=== PATIENT | female | born 1985 | race Caucasian/White ===

== ENCOUNTER 2016-09-18 05:10 | Emergency (ER) | payer OTHER ==
[2016-09-18 06:58] LABS: BASO % 0.2 % (0.0-1.0); EOS # 0.1 K/mm3 (0.0-0.50); EOS % 1.1 % (0.0-3.0); LARGE UNSTAINED CELL # 0.1 K/mm3 (0.0-0.4); LYMPH % 16.2 % (24.0-44.0); MEAN CORPUSCULAR HEMOGLOBIN 29.5 pg (27.0-33.0); MEAN CORPUSCULAR HGB CONC 34.2 g/dl (32.0-36.5); MEAN CORPUSCULAR VOLUME 86.3 fl (80.0-96.0); MONO # 0.3 K/mm3 (0.0-0.8); MONO % 4.8 % (0.0-5.0); NEUTROPHILS # 4.8 K/mm3 (1.8-7.7); NEUTROPHILS % 76.7 % (36.0-66.0); PLATELET COUNT, AUTOMATED 208 k/mm3 (150-450); RED CELL DISTRIBUTION WIDTH 12.4 % (11.5-14.5); WHITE BLOOD COUNT 6.2 K/mm3 (4.0-10.0)
[2016-09-18 07:14] LABS: CONTROL LINE HCG INT CTR LINE PRESENT
[2016-09-18] MEDS ORDERED: ONDANSETRON 4MG/2ML VIAL (J2405) As Ordered ONE (07:15)
[2016-09-18] MEDS ORDERED: MORPHINE 4 MG/ML 1ML SYRINGE As Ordered ONE (07:15)
[2016-09-18] MEDS ORDERED: KETOROLAC 30 MG/ML VIAL (J1885) As Ordered ONE (07:15)
[2016-09-18 07:17] LABS: ALBUMIN 3.9 GM/DL (3.2-5.2); ALBUMIN/GLOBULIN RATIO 0.98 (1.00-1.93); ALKALINE PHOSPHATASE 70 U/L (45-117); ALT/SGPT 24 U/L (12-78); AMYLASE 51 U/L (25-115); ANION GAP 8 MEQ/L (8-16); AST/SGOT 17 U/L (15-37); BILIRUBIN,DIRECT < 0.1 MG/DL (0.0-0.2); BILIRUBIN,TOTAL 0.5 MG/DL (0.2-1.0); BLOOD UREA NITROGEN 15 MG/DL (7-18); CARBON DIOXIDE LEVEL 27 MEQ/L (21-32); CHLORIDE LEVEL 104 MEQ/L (98-107); CREATININE FOR GFR 0.87 MG/DL (0.55-1.02); GLOMERULAR FILTRATION RATE > 60.0 (>60); GLUCOSE, FASTING 92 MG/DL (70-105); POTASSIUM SERUM 3.8 MEQ/L (3.5-5.1); SODIUM LEVEL 139 MEQ/L (136-145); TOTAL PROTEIN 7.9 GM/DL (6.4-8.2)
--- NOTE | 2016-09-18 07:54 | REP ---
Clinical: Right upper quadrant pain. Technique: Real time solis scale ultrasound examination using curved array transducer. Findings: Liver demonstrates mild fatty infiltration without focal hepatic lesion identified. The pancreas is incompletely evaluated due to interposed bowel gas, but visualized portions appear normal. The gallbladder demonstrates mobile gallstone without wall thickening or pericholecystic fluid. No biliary ductal dilatation is appreciated and the common bile duct measures 4 mm diameter. The right kidney is normal in reniform shape and appearance without hydronephrosis measuring 11.2 x 5.7 x 4.9 cm. No ascites in the visualized right upper quadrant. Impression: Cholelithiasis without sonographic evidence for acute cholecystitis. Fatty infiltration to the liver. Signed by Shyam Jensen MD 09/18/2016 07:45 A
[2016-09-18] MEDS ORDERED: GI COCKTAIL 50ML BTL(HYOSCYAMINE/MAALOX/LIDOCAINE VISCOUS)(1:3:1) As Ordered ONE (08:16)
[2016-09-18] MEDS ORDERED: ISOVUE-370 76% 100ML VIAL (Q9967) As Ordered ONE (08:21)
--- NOTE | 2016-09-18 09:15 | REP ---
A CT abdomen and pelvis with IV contrast but without bowel contrast: There are no comparisons. The visualized lung hugo are clear. The hepatic parenchyma is homogeneous. The pancreas is unremarkable. There are multiple gallbladder calculi in the gallbladder fundus. There is no gallbladder wall thickening or pericholecystic fluid to suggest acute cholecystitis. There is no biliary duct dilatation. The spleen has a mottled appearance. This could be artifact from a scanning during the arterial phase of enhancement or could represent splenic masses. The spleen is mildly enlarged measuring 13 0.4 cm craniocaudad. The adrenals, kidneys and abdominal aorta are unremarkable. There is no adenopathy or ascites. The bowel mesentery are unremarkable. Pelvis: The bladder, uterus and adnexa are unremarkable. There is an IUD in the uterus. There is no adenopathy or ascites. The appendix is not identified, however there is no pericecal inflammation. There is no pelvic adenopathy or ascites. Impression: Cholelithiasis without CT evidence of acute cholecystitis or biliary duct dilatation. Mottled appearance of the spleen, likely secondary to timing of scanning with the contrast bolus. Mild splenomegaly. No ascites or adenopathy. No bowel distension. IUD. Signed by Serg Neri MD 09/18/2016 09:06 A
[2016-09-18 09:29] LABS: CONTROL LINE MONO INT CTR LINE PRESENT
--- NOTE | 2016-09-18 09:59 | EDDOCDS ---
Physician Documentation [facility] Name: Serina Herndon Age: 31 yrs Sex: Female : 1985 Arrival Date: 09/18/2016 Time: 05:10 Bed 10 Private MD: Disposition: 09/18/16 09:41 Discharged to Home/Self Care. Impression: Cholelithiasis, Generalized abdominal pain, Gastritis, unspecified. - Condition is Stable. - Discharge Instructions: Abdominal Pain, Adult, Gastritis, Adult, Abdominal Pain, Women, Cholelithiasis. - Prescriptions for Nexium 20 mg Oral Capsule - take 1 capsule by ORAL route once daily; 20 capsule. - Medication Reconciliation, Local Pharmacy Hours form. - Follow up: Serg Lovell DO; When: 10 - 14 days. [facility]; When: 10 - 14 days. - Problem is new. - Symptoms have improved. - Notes: follow up with dr. lovell for abdominal pain/gallstones. [facility] to [facility] primary care. Call in 2 days for Cassidy Rosario result. [phone] - ask to speak to charge nurse. return if worsening symptoms Historical: - Allergies: No known drug Allergies; - Home Meds: 1. omeprazole 40 mg Oral cpDR 1 cap once daily - PMHx: GERD; - PSHx: none; - Social history: Smoking status: Patient states former smoker of tobacco. No barriers to communication noted, The patient speaks fluent Portuguese, Speaks appropriately for age. - Family history: Not pertinent. - : The pt / caregiver states he / she is not on anticoagulants. Home medication list is obtained from the patient. - Exposure Risk Screening:: None identified. 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 2 in. (157.48 cm); Pain 6/10; 07:56 BP 95 / 53; Pulse 61; Resp 16; Pain 5/10; jmk 08:24 BP 113 / 55; Pulse 66; Resp 16; jmk 09:41 BP 107 / 64; Pulse 60; Resp 18; Pulse Ox 98% on R/A; Pain 0/10; kc3 09:57 BP 108 / 63; Pulse 60; Resp 18; Temp 97.5(O); Pulse Ox 99% on R/A; Pain 0/10; kc3 05:43 Body Mass Index 44.99 (111.58 kg, 157.48 cm) ko2 MDM: 05:55 [facility] [place] [place] Payment Agreement was scanned into [employer] and attached to record. slh 06:42 IV Saline Lock ordered. ml 06:42 NS 0.9% 1000 ml IV at bolus once ordered. ml 06:42 Ondansetron 4 mg IVP once ordered. ml 06:42 Misc. Nursing Order ordered. ml 06:44 CBC with Diff Ordered. EDMS 06:44 MED Profile Ordered. EDMS 06:44 Liver Profile Ordered. EDMS 06:44 Lipase Ordered. EDMS 06:44 Amylase Ordered. EDMS 06:44 HCG,Serum Qualitative Ordered. EDMS 06:48 Financial registration complete. pm4 06:58 UA Ordered. EDMS 06:58 Urine Culture Ordered. EDMS 06:59 Gallbladder US Ordered. EDMS 07:14 ketorolac 30 mg IVP once ordered. ml 07:14 morphine 4 mg IVP once ordered. ml 07:22 Ondansetron 4 mg IVP once ordered. jmk 07:34 CBC with Diff Reviewed. ml 07:34 Liver Profile Reviewed. ml 07:34 UA Reviewed. ml 07:34 MED Profile Reviewed. ml 07:34 Lipase Reviewed. ml 07:34 Amylase Reviewed. ml 07:34 HCG,Serum Qualitative Reviewed. ml 08:08 Gallbladder US Reviewed. ml 08:11 Vital Signs ordered. ml 08:11 NS 0.9% 1000 ml IV at bolus once ordered. ml 08:11 Misc. Nursing Order ordered. ml 08:11 morphine 2 mg IVP once ordered. ml 08:12 GI Cocktail - (Alum-Mag Hydroxide-Simeth 30 ml, Lidocaine 10 ml, Hyoscyamine 10 ml) PO ml once; Pre-mixed 50mL unit dose ordered. 08:12 CT ABD & PELVIS: IV Contrast Only Ordered. EDMS 09:19 Monoscreen Ordered. EDMS 09:19 Misc Sterile Supply Technician Order ordered. ml 09:22 Misc Sterile Supply Technician Order complete. deg 09:23 CASSIDY ROSARIO VIRUS AB, COMPREH Ordered. EDMS Administered Medications: 06:48 Not Given (pt denies nausea): Ondansetron 4 mg IVP once [facility] 07:07 Drug: NS 0.9% 1000 ml Route: IV; Rate: bolus; Site: left antecubital; k 07:21 Drug: ketorolac 30 mg [ketorolac 30 mg/mL (1 mL) injection solution (1 mL)] Route: IVP; [facility] Site: left antecubital; 07:58 Follow up: Response: No significant change. jmk 07:21 Drug: morphine 4 mg Route: IVP; Site: left antecubital; jmk 07:58 Follow up: Response: No significant change. jmk 07:22 Drug: Ondansetron 4 mg Route: IVP; Site: left antecubital; jmk 07:58 Follow up: Response: No significant change. k 08:23 Drug: NS 0.9% 1000 ml Route: IV; Rate: bolus; Site: left antecubital; k 08:23 Drug: GI Cocktail - (Alum-Mag Hydroxide-Simeth Suspension 225 mg-200 mg-25 mg/5 mL 30 jmk ml, Lidocaine Liquid 2 % 10 ml, Hyoscyamine Liquid 10 ml) Route: PO; 09:07 Follow up: Response: Pain is decreased k 09:58 Not Given (Patient Refused): morphine 2 mg IVP once kc3 Signatures: Dispatcher [employer] Renate Noyola MD MD ml Murray, Denise, Salesperson [employer] deg Terrance Garza RN RN jmk Kelsi MaldonadoRN RN Joanne Pierce [facility] Emily Patterson RN RN kc3 Edwin Hager, Reg Reg pm4 Haydee Helm RN [facility] The chart was reviewed and I authenticate all verbal orders and agree with the evaluation and treatment provided.Attachments: 05:55 [facility] Payment Agreement [facility] MTDD
--- NOTE | 2016-09-18 09:59 | EDDOCDS ---
Nurse's Notes [facility] Name: Serina Herndon Age: 31 yrs Sex: Female : 1985 Arrival Date: 09/18/2016 Time: 05:10 Bed 10 Private MD: Diagnosis: Cholelithiasis;Generalized abdominal pain;Gastritis, unspecified Presentation: 09/18 05:39 Presenting complaint: Patient states: was supposed to have gallbladder out a while ago ko2 but didn't and thinks that was what is causing her pain. Was running a fever but took Tylenol. Pt did throw up hours after eating and it was undigested. Risk factors: the patient reports no vaginal bleeding. Suicide/Homicide risk assessment- the patient denies having any suicidal and/or homicidal ideations and does not present with any other emotional, behavioral or mental health complaints. Status: Patient is not a office service coordinator or dependent. Transition of care: patient was not received from another setting of care. 05:39 Method Of Arrival: Walkin/Carried/Asstd ko2 05:46 Adult Sepsis Screening: The patient does not have new or worsening altered mentation. ko2 Patient's respiratory rate is less than 22. Systolic blood pressure is greater than 100. Patient has a qSOFA score of 0- Negative Sepsis Screen. 05:46 Acuity: TAD Level 3 ko2 Triage Assessment: 05:42 General: Appears in no apparent distress, Behavior is appropriate for age, cooperative. ko2 Pain: Location: epigastric area, right lower quadrant and left lower quadrant. HIV screening NA for this visit Offered previously. Neurological: Level of Consciousness is awake, alert. Respiratory: Airway is patent Respiratory effort is even, unlabored. GI: Reports lower abdominal pain, nausea, vomiting. Derm: Skin is normal. 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 omeprazole 40 mg Oral cpDR 1 cap once daily - PMHx: GERD; - PSHx: none; - Social history: Smoking status: Patient states former smoker of tobacco. No barriers to communication noted, The patient speaks fluent Dutch, Speaks appropriately for age. - Family history: Not pertinent. - : The pt / caregiver states he / she is not on anticoagulants. Home medication list is obtained from the patient. - Exposure Risk Screening:: None identified. Screenin:46 Screening information is obtained from the patient. Fall risk: No risks identified. ko2 Assistance ADL's: requires no assistance with activities of daily living. Abuse/DV Screen: The patient / caregiver reports he/she is: not in a situation that causes fear, pain or injury. Nutritional screening: No deficits noted. Advance Directives: Currently, there is no health care proxy. There is no active DNR order. There is no living will. There is no Power of Hash [place]. home support is adequate. Assessment: 06:48 General: Appears in no apparent distress, comfortable, Behavior is appropriate for age, mlc cooperative. Pain: Location: epigastric area, right lower quadrant and left lower quadrant Pain currently is 5 out of 10 on a pain scale. Neurological: Level of Consciousness is awake, alert, Oriented to person, place, time. Respiratory: Airway is patent Respiratory effort is even, unlabored, Respiratory pattern is regular. GI: Abdomen is obese, Bowel sounds present X 4 quads. Abd is soft and non tender X 4 quads. Denies nausea. Derm: Skin is pink, warm & dry. 07:22 General: Appears skin warm and dry color satisfactory. moist pink oral mucosa. jmk indicated mid upper abd discomfort. Obese abdomen that is non distended with bowel sounds present x 4 . reports pain radiates to RUQ and to back.. 07:33 General: Appears resp easy and regular with eyes closed. security maintaining contact. jmk awaiting dispo. 07:56 General: Appears states pain is essentially unchanged at 5/10. Reports that she is jmk feeling effect from meds, but pain unchanged. Continues to present in NAD. IV bolus continues.. 09:07 General: Appears states pain has decreased and declined morphine when offered.. jmk 09:40 General: Appears in no apparent distress, comfortable, Behavior is appropriate for age, kc3 cooperative. Pain: Denies pain. Neurological: Level of Consciousness is awake, alert, obeys commands, Oriented to person, place, time. Respiratory: Respiratory effort is even, unlabored. GI: Denies nausea. Derm: Skin is pink, warm & dry. 09:57 General: Appears in no apparent distress, comfortable, Behavior is appropriate for age, kc3 cooperative. Pain: Denies pain. Neurological: No deficits noted. Respiratory: Respiratory effort is even, unlabored. GI: Denies nausea. Vital Signs: 05:43 BP 136 / 88; Pulse 65; Resp 16; Temp 97.4; Pulse Ox 98% ; Weight 111.58 kg; Height 5 ko2 ft. 2 in. (157.48 cm); Pain 6/10; 07:56 BP 95 / 53; Pulse 61; Resp 16; Pain 5/10; jmk 08:24 BP 113 / 55; Pulse 66; Resp 16; jmk 09:41 BP 107 / 64; Pulse 60; Resp 18; Pulse Ox 98% on R/A; Pain 0/10; kc3 09:57 BP 108 / 63; Pulse 60; Resp 18; Temp 97.5(O); Pulse Ox 99% on R/A; Pain 0/10; kc3 05:43 Body Mass Index 44.99 (111.58 kg, 157.48 cm) ko2 Vitals: 05:43 Log In Time: September 18, 2016 at 05:10. ko2 ED Course: 05:12 Patient visited by Edwin Hager Reg. pm4 05:12 Patient moved to Waiting pm4 05:38 Patient moved to Triage 1 ko2 05:46 Triage Initiated ko2 05:47 Patient moved to Waiting ko2 05:55 [facility] [place] Payment Agreement was scanned into [employer] and attached to record. [facility] 06:11 Haydee Helm RN is Primary Nurse. aug 06:11 Patient moved to 10 aug 06:28 Patient visited by Sherita Neri PCA. russel 06:48 Renate Bonilla MD is Attending Physician. ml 06:48 Patient visited by Renate Bonilla MD. ml 06:48 HCG,Serum Qualitative Sent. mlc 06:48 Amylase Sent. mlc 06:48 Lipase Sent. mlc 06:48 Liver Profile Sent. mlc 06:48 MED Profile Sent. mlc 06:48 CBC with Diff Sent. mlc 06:48 Inserted saline lock: 18 gauge in left antecubital area and blood collected. [facility] patient tolerated the procedure well. 06:49 Patient visited by Haydee Helm RN. mlc 07:07 Primary Nurse role handed off by Haydee Helm RN deg 07:08 UA Sent. jmk 07:08 Urine Culture Sent. jmk 07:12 Patient moved to Ultrasound br3 07:22 The patient / caregiver is instructed regarding the plan of care and ED course. jmk 07:24 Patient visited by Terrance Garza,FRIDA. jmk 07:32 Patient moved to 10 br3 07:36 Patient visited by Terrance Garza,FRIDA. jmk 07:56 Gallbladder US Returned. EDMS 08:25 Patient visited by Terrance Garza,FRIDA. jmk 09:17 Patient visited by Balbina Dey PCA. ct3 09:18 CT ABD & PELVIS: IV Contrast Only Returned. EDMS 09:34 Emily Patterson,FRIDA is Primary Nurse. kc3 09:40 Serg Lovell DO is Referral Physician. ml 09:40 [facility] is Referral Physician. ml 09:44 Patient visited by Emily Patterson,FRIDA. kc3 09:58 Discontinued IV lock intact, bleeding controlled, pressure dressing applied, No kc3 redness/swelling at site. No procedures done that require assistance. Administered Medications: 06:48 Not Given (pt denies nausea): Ondansetron 4 mg IVP once mlc 07:07 Drug: NS 0.9% 1000 ml Route: IV; Rate: bolus; Site: left antecubital; jmk 07:21 Drug: ketorolac 30 mg [ketorolac 30 mg/mL (1 mL) injection solution (1 mL)] Route: IVP; [facility] Site: left antecubital; 07:58 Follow up: Response: No significant change. jmk 07:21 Drug: morphine 4 mg Route: IVP; Site: left antecubital; jmk 07:58 Follow up: Response: No significant change. jmk 07:22 Drug: Ondansetron 4 mg Route: IVP; Site: left antecubital; jmk 07:58 Follow up: Response: No significant change. jmk 08:23 Drug: NS 0.9% 1000 ml Route: IV; Rate: bolus; Site: left antecubital; jmk 08:23 Drug: GI Cocktail - (Alum-Mag Hydroxide-Simeth Suspension 225 mg-200 mg-25 mg/5 mL 30 jmk ml, Lidocaine Liquid 2 % 10 ml, Hyoscyamine Liquid 10 ml) Route: PO; 09:07 Follow up: Response: Pain is decreased jmk 09:58 Not Given (Patient Refused): morphine 2 mg IVP once kc3 Order Results: Lab Order: CBC with Diff; SPEC'M 09/18/16 06:43 Test: WHITE BLOOD COUNT; Value: 6.2; Range: 4.0-10.0; Units: K/mm3; Status: F Test: RED BLOOD COUNT; Value: 4.68; Range: 4.00-5.40; Units: M/mm3; Status: F Test: HEMOGLOBIN; Value: 13.8; Range: 12.0-16.0; Units: g/dl; Status: F Test: HEMATOCRIT; Value: 40.4; Range: 36.0-47.0; Units: %; Status: F Test: MEAN CORPUSCULAR VOLUME; Value: 86.3; Range: 80.0-96.0; Units: fl; Status: F Test: MEAN CORPUSCULAR HEMOGLOBIN; Value: 29.5; Range: 27.0-33.0; Units: pg; Status: F Test: MEAN CORPUSCULAR HGB CONC; Value: 34.2; Range: 32.0-36.5; Units: g/dl; Status: F Test: RED CELL DISTRIBUTION WIDTH; Value: 12.4; Range: 11.5-14.5; Units: %; Status: F Test: PLATELET COUNT, AUTOMATED; Value: 208; Range: 150-450; Units: k/mm3; Status: F Test: NEUTROPHILS %; Value: 76.7; Range: 36.0-66.0; Abnormal: Above high normal; Units: %; Status: F Test: LYMPH %; Value: 16.2; Range: 24.0-44.0; Abnormal: Below low normal; Units: %; Status: F Test: MONO %; Value: 4.8; Range: 0.0-5.0; Units: %; Status: F Test: EOS %; Value: 1.1; Range: 0.0-3.0; Units: %; Status: F Test: BASO %; Value: 0.2; Range: 0.0-1.0; Units: %; Status: F Test: LARGE UNSTAINED CELL %; Value: 1.0; Range: 0.0-4.0; Units: %; Status: F Test: NEUTROPHILS #; Value: 4.8; Range: 1.8-7.7; Units: K/mm3; Status: F Test: LYMPH #; Value: 1.0; Range: 1.5-4.5; Abnormal: Below low normal; Units: K/mm3; Status: F Test: MONO #; Value: 0.3; Range: 0.0-0.8; Units: K/mm3; Status: F Test: EOS #; Value: 0.1; Range: 0.0-0.50; Units: K/mm3; Status: F Test: BASO #; Value: 0.0; Range: 0.0-0.2; Units: K/mm3; Status: F Test: LARGE UNSTAINED CELL #; Value: 0.1; Range: 0.0-0.4; Units: K/mm3; Status: F Lab Order: MED Profile; SPEC'M 09/18/16 06:43 Test: GLUCOSE, FASTING; Value: 92; Range: 70-105; Units: MG/DL; Status: F Test: BLOOD UREA NITROGEN; Value: 15; Range: 7-18; Units: MG/DL; Status: F Test: CREATININE FOR GFR; Value: 0.87; Range: 0.55-1.02; Units: MG/DL; Status: F Test: SODIUM LEVEL; Range: 136-145; Units: MEQ/L; Status: I Test: POTASSIUM SERUM; Range: 3.5-5.1; Units: MEQ/L; Status: I Test: CHLORIDE LEVEL; Range: 98-107; Units: MEQ/L; Status: I Test: CARBON DIOXIDE LEVEL; Range: 21-32; Units: MEQ/L; Status: I Test: ANION GAP; Range: 8-16; Units: MEQ/L; Status: I Test: CALCIUM LEVEL; Range: 8.5-10.1; Units: MG/DL; Status: I Test: GLOMERULAR FILTRATION RATE; Value: > 60.0; Range: >60; Status: F Test: SODIUM LEVEL; Value: 139; Range: 136-145; Units: MEQ/L; Status: F Test: POTASSIUM SERUM; Value: 3.8; Range: 3.5-5.1; Units: MEQ/L; Status: F Test: CHLORIDE LEVEL; Value: 104; Range: 98-107; Units: MEQ/L; Status: F Test: CARBON DIOXIDE LEVEL; Value: 27; Range: 21-32; Units: MEQ/L; Status: F Test: ANION GAP; Value: 8; Range: 8-16; Units: MEQ/L; Status: F Test: CALCIUM LEVEL; Value: 9.0; Range: 8.5-10.1; Units: MG/DL; Status: F Test Note: ; Units are mL/min/1.73 m2 Chronic Kidney Disease Staging per NKF: Stage I & II GFR >=60 Normal to Mildly Decreased Stage III GFR 30-59 Moderately Decreased Stage IV GFR 15-29 Severely Decreased Stage V GFR <15 Very Little GFR Left ESRD GFR <15 on CELL BIOLOGIST Lab Order: Liver Profile; 09/18/16 06:43 Test: AST/SGOT; Value: 17; Range: 15-37; Units: U/L; Status: F Test: ALT/SGPT; Value: 24; Range: 12-78; Units: U/L; Status: F Test: ALKALINE PHOSPHATASE; Value: 70; Range: 45-117; Units: U/L; Status: F Test: BILIRUBIN,TOTAL; Value: 0.5; Range: 0.2-1.0; Units: MG/DL; Status: F Test: BILIRUBIN,DIRECT; Value: < 0.1; Range: 0.0-0.2; Units: MG/DL; Status: F Test: TOTAL PROTEIN; Value: 7.9; Range: 6.4-8.2; Units: GM/DL; Status: F Test: ALBUMIN; Value: 3.9; Range: 3.2-5.2; Units: GM/DL; Status: F Test: ALBUMIN/GLOBULIN RATIO; Value: 0.98; Range: 1.00-1.93; Abnormal: Below low normal; Status: F Lab Order: Lipase; 09/18/16 06:43 Test: LIPASE; Value: 177; Range: 73-393; Units: U/L; Status: F Lab Order: Amylase; 09/18/16 06:43 Test: AMYLASE; Value: 51; Range: 25-115; Units: U/L; Status: F Lab Order: HCG,Serum Qualitative; 09/18/16 06:43 Test: HCG, SERUM QUALITATIVE; Value: NEGATIVE; Range: NEGATIVE; Status: F Lab Order: UA; SPEC'M 09/18/16 06:43 Test: APPEARANCE, URINE; Value: CLEAR; Range: CLEAR; Status: F Test: COLOR, URINE; Value: STRAW; Range: YELLOW; Status: F Test: PH,URINE; Value: 6.0; Range: 5.0-9.0; Units: UNITS; Status: F Test: SPECIFIC GRAVITY URINE AUTO; Value: 1.006; Range: 1.002-1.035; Status: F Test: PROTEIN, URINE AUTO; Value: NEGATIVE; Range: NEGATIVE; Units: mg/dL; Status: F Test: GLUCOSE, URINE (UA) AUTO; Value: NEGATIVE; Range: NEGATIVE; Units: mg/dL; Status: F Test: KETONE, URINE AUTO; Value: NEGATIVE; Range: NEGATIVE; Units: mg/dL; Status: F Test: UROBILINOGEN, URINE AUTO; Value: 0.2; Range: 0.0-2.0; Units: mg/dL; Status: F Test: BILIRUBIN, URINE AUTO; Value: NEGATIVE; Range: NEGATIVE; Status: F Test: NITRITE, URINE AUTO; Value: NEGATIVE; Range: NEGATIVE; Status: F Test: LEUKOCYTE ESTERASE, URINE AUTO; Value: NEGATIVE; Range: NEGATIVE; Status: F Test: BLOOD, URINE BLOOD; Value: 1+; Range: NEGATIVE; Abnormal: Above high normal; Status: F Test: WBC, URINE AUTO; Value: 1; Range: 0-3; Units: /HPF; Status: F Test: RBC, URINE AUTO; Value: 1; Range: 0-3; Units: /HPF; Status: F Test: BACTERIA, URINE AUTO; Value: 1+; Range: NEGATIVE; Abnormal: Above high normal; Status: F Test: SQUAMOUS EPITHELIAL CELL UR AU; Value: 1; Range: 0-6; Units: /HPF; Status: F Test: HYALINE CAST, URINE AUTO; Value: 0; Range: 0-1; Units: /LPF; Status: F Lab Order: Monoscreen; SPEC'M 09/18/16 06:43 Test: MONO SCRN; Value: NEGATIVE; Range: NEGATIVE; Status: F Radiology Order: Gallbladder US Test: Gallbladder US REASON FOR EXAMINATION: ruq pain; Clinical: Right upper quadrant pain.; ; Technique: Real time solis scale ultrasound examination using curved array; transducer.; ; Findings:; Liver demonstrates mild fatty infiltration without focal hepatic lesion; identified. The pancreas is incompletely evaluated due to interposed bowel gas,; but visualized portions appear normal. The gallbladder demonstrates mobile; gallstone without wall thickening or pericholecystic fluid. No biliary ductal; dilatation is appreciated and the common bile duct measures 4 mm diameter. The; right kidney is normal in reniform shape and appearance without hydronephrosis; measuring 11.2 x 5.7 x 4.9 cm. No ascites in the visualized right upper; quadrant.; ; Impression:; Cholelithiasis without sonographic evidence for acute cholecystitis.; Fatty infiltration to the liver.; ; ; Signed by; Shyam Jensen MD 09/18/2016 07:45 A; Radiology Order: CT ABD & PELVIS: IV Contrast Only Test: CT ABD & PELVIS: IV Contrast Only REASON FOR EXAMINATION: upper abdl pain; A CT abdomen and pelvis with IV contrast but without bowel contrast:; ; There are no comparisons.; ; The visualized lung hugo are clear.; ; The hepatic parenchyma is homogeneous. The pancreas is unremarkable. There are; multiple gallbladder calculi in the gallbladder fundus. There is no gallbladder; wall thickening or pericholecystic fluid to suggest acute cholecystitis. There; is no biliary duct dilatation. The spleen has a mottled appearance. This could; be artifact from a scanning during the arterial phase of enhancement or could; represent splenic masses. The spleen is mildly enlarged measuring 13 0.4 cm; craniocaudad.; ; The adrenals, kidneys and abdominal aorta are unremarkable. There is no; adenopathy or ascites.; ; The bowel mesentery are unremarkable.; ; Pelvis:; ; The bladder, uterus and adnexa are unremarkable. There is an IUD in the uterus.; There is no adenopathy or ascites.; ; The appendix is not identified, however there is no pericecal inflammation.; ; There is no pelvic adenopathy or ascites.; ; Impression:; ; Cholelithiasis without CT evidence of acute cholecystitis or biliary duct; dilatation.; ; Mottled appearance of the spleen, likely secondary to timing of scanning with the; contrast bolus. Mild splenomegaly.; ; No ascites or adenopathy. No bowel distension.; ; IUD.; ; ; Signed by; Serg Neri MD 09/18/2016 09:06 A; Outcome: 09:41 Discharge ordered by Provider. 09:58 Discharge Assessment: Patient awake, alert and oriented x 3. No cognitive and/or kc3 functional deficits noted. Patient verbalized understanding of disposition instructions. patient administered narcotics - yes. Pt provided with safe discharge. The following High Risk Discharge criteria are identified: None. Condition: stable. Discharge instructions given to patient, Instructed on discharge instructions, follow up and referral plans. medication usage, Demonstrated understanding of instructions, medications, Pt was receptive of discharge instructions/ teaching. Prescriptions given X 1. CT Study completed. Ultrasound Study completed. Property :Personal belongings accompany Pt. 09:59 Patient left the ED. kc3 Signatures: Dispatcher [employer] EDMS Renate Bonilla MD MD ml Murray, Denise, Apartment Locator Unit deg Terrance Garza,RN RN Asha Morejon RN RN Keri Mahajan br3 Sherita Neri, SYNCHRONIZER SYNCHRONIZER russel Balbina Dey, SYNCHRONIZER SYNCHRONIZER ct3 Haydee Helm,RN RN Kelsi Quintanilla RN RN ko2 Hook, Sandra slh Crane, KelsiRN RN kc3 Edwin Hager, Reg Reg pm4 MTDD
--- NOTE | 2016-09-20 10:59 | EDDOCDS ---
Physician Documentation [facility] Name: Serina Herndon Age: 31 yrs Sex: Female : 1985 Arrival Date: 09/18/2016 Time: 05:10 Bed 10 Private MD: Disposition: 09/18/16 09:41 Discharged to Home/Self Care. Impression: Cholelithiasis, Generalized abdominal pain, Gastritis, unspecified. - Condition is Stable. - Discharge Instructions: Abdominal Pain, Adult, Gastritis, Adult, Abdominal Pain, Women, Cholelithiasis. - Prescriptions for Nexium 20 mg Oral Capsule - take 1 capsule by ORAL route once daily; 20 capsule. - Medication Reconciliation, Local Pharmacy Hours form. - Follow up: Serg Lovell DO; When: 10 - 14 days. [facility]: [facility]; When: 10 - 14 days. - Problem is new. - Symptoms have improved. - Notes: follow up with dr. lovell for abdominal pain/gallstones. [facility] to [facility] primary care. Call in 2 days for Cassidy Rosario result. [phone] - ask to speak to charge nurse. return if worsening symptoms Historical: - Allergies: No known drug Allergies; - Home Meds: 1. omeprazole 40 mg Oral cpDR 1 cap once daily - PMHx: GERD; - PSHx: none; - Social history: Smoking status: Patient states former smoker of tobacco. No barriers to communication noted, The patient speaks fluent Canadian, Speaks appropriately for age. - Family history: Not pertinent. - : The pt / caregiver states he / she is not on anticoagulants. Home medication list is obtained from the patient. - Exposure Risk Screening:: None identified. 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 2 in. (157.48 cm); Pain 6/10; 07:56 BP 95 / 53; Pulse 61; Resp 16; Pain 5/10; jmk 08:24 BP 113 / 55; Pulse 66; Resp 16; jmk 09:41 BP 107 / 64; Pulse 60; Resp 18; Pulse Ox 98% on R/A; Pain 0/10; kc3 09:57 BP 108 / 63; Pulse 60; Resp 18; Temp 97.5(O); Pulse Ox 99% on R/A; Pain 0/10; kc3 05:43 Body Mass Index 44.99 (111.58 kg, 157.48 cm) ko2 MDM: 05:55 [facility] [place] Payment Agreement was scanned into [employer] and attached to record. slh 06:42 IV Saline Lock ordered. ml 06:42 NS 0.9% 1000 ml IV at bolus once ordered. ml 06:42 Ondansetron 4 mg IVP once ordered. ml 06:42 Misc. Nursing Order ordered. ml 06:44 CBC with Diff Ordered. EDMS 06:44 MED Profile Ordered. EDMS 06:44 Liver Profile Ordered. EDMS 06:44 Lipase Ordered. EDMS 06:44 Amylase Ordered. EDMS 06:44 HCG,Serum Qualitative Ordered. EDMS 06:48 Financial registration complete. pm4 06:58 UA Ordered. EDMS 06:58 Urine Culture Ordered. EDMS 06:59 Gallbladder US Ordered. EDMS 07:14 ketorolac 30 mg IVP once ordered. ml 07:14 morphine 4 mg IVP once ordered. ml 07:22 Ondansetron 4 mg IVP once ordered. jmk 07:34 CBC with Diff Reviewed. ml 07:34 Liver Profile Reviewed. ml 07:34 UA Reviewed. ml 07:34 MED Profile Reviewed. ml 07:34 Lipase Reviewed. ml 07:34 Amylase Reviewed. ml 07:34 HCG,Serum Qualitative Reviewed. ml 08:08 Gallbladder US Reviewed. ml 08:11 Vital Signs ordered. ml 08:11 NS 0.9% 1000 ml IV at bolus once ordered. ml 08:11 Misc. Nursing Order ordered. ml 08:11 morphine 2 mg IVP once ordered. ml 08:12 GI Cocktail - (Alum-Mag Hydroxide-Simeth 30 ml, Lidocaine 10 ml, Hyoscyamine 10 ml) PO ml once; Pre-mixed 50mL unit dose ordered. 08:12 CT ABD & PELVIS: IV Contrast Only Ordered. EDMS 09:19 Monoscreen Ordered. EDMS 09:19 Misc Fashion Buying Internship Order ordered. ml 09:22 Misc [employer] Buying [employer]ship Order complete. deg 09:23 CASSIDY ROSARIO VIRUS AB, COMPREH Ordered. EDMS 14:28 T-Sheet-- Draft Copy was scanned into [employer] and attached to record. gb Administered Medications: 06:48 Not Given (pt denies nausea): Ondansetron 4 mg IVP once [facility] [place] 07:07 Drug: NS 0.9% 1000 ml Route: IV; Rate: bolus; Site: left antecubital; k 07:21 Drug: ketorolac 30 mg [ketorolac 30 mg/mL (1 mL) injection solution (1 mL)] Route: IVP; [facility] Site: left antecubital; 07:58 Follow up: Response: No significant change. k 07:21 Drug: morphine 4 mg Route: IVP; Site: left antecubital; k 07:58 Follow up: Response: No significant change. k 07:22 Drug: Ondansetron 4 mg Route: IVP; Site: left antecubital; k 07:58 Follow up: Response: No significant change. k 08:23 Drug: NS 0.9% 1000 ml Route: IV; Rate: bolus; Site: left antecubital; k 08:23 Drug: GI Cocktail - (Alum-Mag Hydroxide-Simeth Suspension 225 mg-200 mg-25 mg/5 mL 30 jmk ml, Lidocaine Liquid 2 % 10 ml, Hyoscyamine Liquid 10 ml) Route: PO; 09:07 Follow up: Response: Pain is decreased [facility] 09:58 Not Given (Patient Refused): morphine 2 mg IVP once kc3 Signatures: Dispatcher [employer] EDRenate Lomax MD MD ml Murray, Denise, Clothing Patternmaker Unit deg Terrance GarzaRN RN ros[place]ok Tiara Kennedy, Reg Reg gb Kelsi MaldonadoRN RN blaine2 Joanne Guzman [facility] Emily Patterson RN RN kc3 Edwin Hager, Reg Reg pm4 Hadyee Helm RN The chart was reviewed and I authenticate all verbal orders and agree with the evaluation and treatment provided.Attachments: 05:55 [facility] Payment Agreement [facility] 14:28 T-Sheet-- Draft Copy gb Chart Complete MTDD
--- NOTE | 2016-09-20 11:00 | EDDOCDS ---
Nurse's Notes [facility] Name: Serina Herndon Age: 31 yrs Sex: Female : 1985 Arrival Date: 09/18/2016 Time: 05:10 Bed 10 Private MD: Diagnosis: Cholelithiasis;Generalized abdominal pain;Gastritis, unspecified Presentation: 09/18 05:39 Presenting complaint: Patient states: was supposed to have gallbladder out a while ago ko2 but didn't and thinks that was what is causing her pain. Was running a fever but took Tylenol. Pt did throw up hours after eating and it was undigested. Risk factors: the patient reports no vaginal bleeding. Suicide/Homicide risk assessment- the patient denies having any suicidal and/or homicidal ideations and does not present with any other emotional, behavioral or mental health complaints. Status: Patient is not a central services tech or dependent. Transition of care: patient was not received from another setting of care. 05:39 Method Of Arrival: Walkin/Carried/Asstd ko2 05:46 Adult Sepsis Screening: The patient does not have new or worsening altered mentation. ko2 Patient's respiratory rate is less than 22. Systolic blood pressure is greater than 100. Patient has a qSOFA score of 0- Negative Sepsis Screen. 05:46 Acuity: TAD Level 3 ko2 Triage Assessment: 05:42 General: Appears in no apparent distress, Behavior is appropriate for age, cooperative. ko2 Pain: Location: epigastric area, right lower quadrant and left lower quadrant. HIV screening NA for this visit Offered previously. Neurological: Level of Consciousness is awake, alert. Respiratory: Airway is patent Respiratory effort is even, unlabored. GI: Reports lower abdominal pain, nausea, vomiting. Derm: Skin is normal. 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 omeprazole 40 mg Oral cpDR 1 cap once daily - PMHx: GERD; - PSHx: none; - Social history: Smoking status: Patient states former smoker of tobacco. No barriers to communication noted, The patient speaks fluent Guamanian, Speaks appropriately for age. - Family history: Not pertinent. - : The pt / caregiver states he / she is not on anticoagulants. Home medication list is obtained from the patient. - Exposure Risk Screening:: None identified. Screenin:46 Screening information is obtained from the patient. Fall risk: No risks identified. ko2 Assistance ADL's: requires no assistance with activities of daily living. Abuse/DV Screen: The patient / caregiver reports he/she is: not in a situation that causes fear, pain or injury. Nutritional screening: No deficits noted. Advance Directives: Currently, there is no health care proxy. There is no active DNR order. There is no living will. There is no Power of Manager Clinical Research. home support is adequate. Assessment: 06:48 General: Appears in no apparent distress, comfortable, Behavior is appropriate for age, mlc cooperative. Pain: Location: epigastric area, right lower quadrant and left lower quadrant Pain currently is 5 out of 10 on a pain scale. Neurological: Level of Consciousness is awake, alert, Oriented to person, place, time. Respiratory: Airway is patent Respiratory effort is even, unlabored, Respiratory pattern is regular. GI: Abdomen is obese, Bowel sounds present X 4 quads. Abd is soft and non tender X 4 quads. Denies nausea. Derm: Skin is pink, warm & dry. 07:22 General: Appears skin warm and dry color satisfactory. moist pink oral mucosa. jmk indicated mid upper abd discomfort. Obese abdomen that is non distended with bowel sounds present x 4 . reports pain radiates to RUQ and to back.. 07:33 General: Appears resp easy and regular with eyes closed. security maintaining contact. jmk awaiting dispo. 07:56 General: Appears states pain is essentially unchanged at 5/10. Reports that she is jmk feeling effect from meds, but pain unchanged. Continues to present in NAD. IV bolus continues.. 09:07 General: Appears states pain has decreased and declined morphine when offered.. jmk 09:40 General: Appears in no apparent distress, comfortable, Behavior is appropriate for age, kc3 cooperative. Pain: Denies pain. Neurological: Level of Consciousness is awake, alert, obeys commands, Oriented to person, place, time. Respiratory: Respiratory effort is even, unlabored. GI: Denies nausea. Derm: Skin is pink, warm & dry. 09:57 General: Appears in no apparent distress, comfortable, Behavior is appropriate for age, kc3 cooperative. Pain: Denies pain. Neurological: No deficits noted. Respiratory: Respiratory effort is even, unlabored. GI: Denies nausea. Vital Signs: 05:43 BP 136 / 88; Pulse 65; Resp 16; Temp 97.4; Pulse Ox 98% ; Weight 111.58 kg; Height 5 ko2 ft. 2 in. (157.48 cm); Pain 6/10; 07:56 BP 95 / 53; Pulse 61; Resp 16; Pain 5/10; jmk 08:24 BP 113 / 55; Pulse 66; Resp 16; jmk 09:41 BP 107 / 64; Pulse 60; Resp 18; Pulse Ox 98% on R/A; Pain 0/10; kc3 09:57 BP 108 / 63; Pulse 60; Resp 18; Temp 97.5(O); Pulse Ox 99% on R/A; Pain 0/10; kc3 05:43 Body Mass Index 44.99 (111.58 kg, 157.48 cm) ko2 Vitals: 05:43 Log In Time: September 18, 2016 at 05:10. ko2 ED Course: 05:12 Patient visited by Edwin Hager Reg. pm4 05:12 Patient moved to Waiting pm4 05:38 Patient moved to Triage 1 ko2 05:46 Triage Initiated ko2 05:47 Patient moved to Waiting ko2 05:55 [facility] Payment Agreement was scanned into [employer] and attached to record. [facility] 06:11 Haydee Helm RN is Primary Nurse. aug 06:11 Patient moved to 10 aug 06:28 Patient visited by Sherita Neri PCA. russel 06:48 Renate Bonilla MD is Attending Physician. ml 06:48 Patient visited by Renate Bonilla MD. ml 06:48 HCG,Serum Qualitative Sent. mlc 06:48 Amylase Sent. mlc 06:48 Lipase Sent. mlc 06:48 Liver Profile Sent. mlc 06:48 MED Profile Sent. mlc 06:48 CBC with Diff Sent. mlc 06:48 Inserted saline lock: 18 gauge in left antecubital area and blood collected. [place] [facility] [place] procedure well. 06:49 Patient visited by Haydee Helm RN. mlc 07:07 Primary Nurse role handed off by Haydee Helm RN deg 07:08 UA Sent. jmk 07:08 Urine Culture Sent. jmk 07:12 Patient moved to Ultrasound br3 07:22 The patient / caregiver is instructed regarding the plan of care and ED course. jmk 07:24 Patient visited by Terrance Garza,FRIDA. jmk 07:32 Patient moved to 10 br3 07:36 Patient visited by Terrance Garza,FRIDA. jmk 07:56 Gallbladder US Returned. EDMS 08:25 Patient visited by Terrance Garza,FRIDA. jmk 09:17 Patient visited by Balbina Dey PCA. ct3 09:18 CT ABD & PELVIS: IV Contrast Only Returned. EDMS 09:34 Emily Patterson,RN is Primary Nurse. kc3 09:40 Serg Lovell DO is Referral Physician. ml 09:40 [facility] is Referral Physician. ml 09:44 Patient visited by Emily Patterson,FRIDA. kc3 09:58 Discontinued IV lock intact, bleeding controlled, pressure dressing applied, No kc3 redness/swelling at site. No procedures done that require assistance. 14:28 T-Sheet-- Draft Copy was scanned into [employer] and attached to record. gb Administered Medications: 06:48 Not Given (pt denies nausea): Ondansetron 4 mg IVP once mlc 07:07 Drug: NS 0.9% 1000 ml Route: IV; Rate: bolus; Site: left antecubital; jmk 07:21 Drug: ketorolac 30 mg [ketorolac 30 mg/mL (1 mL) injection solution (1 mL)] Route: IVP; [facility] Site: left antecubital; 07:58 Follow up: Response: No significant change. jmk 07:21 Drug: morphine 4 mg Route: IVP; Site: left antecubital; jmk 07:58 Follow up: Response: No significant change. jmk 07:22 Drug: Ondansetron 4 mg Route: IVP; Site: left antecubital; jmk 07:58 Follow up: Response: No significant change. jmk 08:23 Drug: NS 0.9% 1000 ml Route: IV; Rate: bolus; Site: left antecubital; jmk 08:23 Drug: GI Cocktail - (Alum-Mag Hydroxide-Simeth Suspension 225 mg-200 mg-25 mg/5 mL 30 jmk ml, Lidocaine Liquid 2 % 10 ml, Hyoscyamine Liquid 10 ml) Route: PO; 09:07 Follow up: Response: Pain is decreased k 09:58 Not Given (Patient Refused): morphine 2 mg IVP once kc3 Order Results: Lab Order: CBC with Diff; SPEC'M 09/18/16 06:43 Test: WHITE BLOOD COUNT; Value: 6.2; Range: 4.0-10.0; Units: K/mm3; Status: F Test: RED BLOOD COUNT; Value: 4.68; Range: 4.00-5.40; Units: M/mm3; Status: F Test: HEMOGLOBIN; Value: 13.8; Range: 12.0-16.0; Units: g/dl; Status: F Test: HEMATOCRIT; Value: 40.4; Range: 36.0-47.0; Units: %; Status: F Test: MEAN CORPUSCULAR VOLUME; Value: 86.3; Range: 80.0-96.0; Units: fl; Status: F Test: MEAN CORPUSCULAR HEMOGLOBIN; Value: 29.5; Range: 27.0-33.0; Units: pg; Status: F Test: MEAN CORPUSCULAR HGB CONC; Value: 34.2; Range: 32.0-36.5; Units: g/dl; Status: F Test: RED CELL DISTRIBUTION WIDTH; Value: 12.4; Range: 11.5-14.5; Units: %; Status: F Test: PLATELET COUNT, AUTOMATED; Value: 208; Range: 150-450; Units: k/mm3; Status: F Test: NEUTROPHILS %; Value: 76.7; Range: 36.0-66.0; Abnormal: Above high normal; Units: %; Status: F Test: LYMPH %; Value: 16.2; Range: 24.0-44.0; Abnormal: Below low normal; Units: %; Status: F Test: MONO %; Value: 4.8; Range: 0.0-5.0; Units: %; Status: F Test: EOS %; Value: 1.1; Range: 0.0-3.0; Units: %; Status: F Test: BASO %; Value: 0.2; Range: 0.0-1.0; Units: %; Status: F Test: LARGE UNSTAINED CELL %; Value: 1.0; Range: 0.0-4.0; Units: %; Status: F Test: NEUTROPHILS #; Value: 4.8; Range: 1.8-7.7; Units: K/mm3; Status: F Test: LYMPH #; Value: 1.0; Range: 1.5-4.5; Abnormal: Below low normal; Units: K/mm3; Status: F Test: MONO #; Value: 0.3; Range: 0.0-0.8; Units: K/mm3; Status: F Test: EOS #; Value: 0.1; Range: 0.0-0.50; Units: K/mm3; Status: F Test: BASO #; Value: 0.0; Range: 0.0-0.2; Units: K/mm3; Status: F Test: LARGE UNSTAINED CELL #; Value: 0.1; Range: 0.0-0.4; Units: K/mm3; Status: F Lab Order: MED Profile; SPEC'M 09/18/16 06:43 Test: GLUCOSE, FASTING; Value: 92; Range: 70-105; Units: MG/DL; Status: F Test: BLOOD UREA NITROGEN; Value: 15; Range: 7-18; Units: MG/DL; Status: F Test: CREATININE FOR GFR; Value: 0.87; Range: 0.55-1.02; Units: MG/DL; Status: F Test: SODIUM LEVEL; Range: 136-145; Units: MEQ/L; Status: I Test: POTASSIUM SERUM; Range: 3.5-5.1; Units: MEQ/L; Status: I Test: CHLORIDE LEVEL; Range: 98-107; Units: MEQ/L; Status: I Test: CARBON DIOXIDE LEVEL; Range: 21-32; Units: MEQ/L; Status: I Test: ANION GAP; Range: 8-16; Units: MEQ/L; Status: I Test: CALCIUM LEVEL; Range: 8.5-10.1; Units: MG/DL; Status: I Test: GLOMERULAR FILTRATION RATE; Value: > 60.0; Range: >60; Status: F Test: SODIUM LEVEL; Value: 139; Range: 136-145; Units: MEQ/L; Status: F Test: POTASSIUM SERUM; Value: 3.8; Range: 3.5-5.1; Units: MEQ/L; Status: F Test: CHLORIDE LEVEL; Value: 104; Range: 98-107; Units: MEQ/L; Status: F Test: CARBON DIOXIDE LEVEL; Value: 27; Range: 21-32; Units: MEQ/L; Status: F Test: ANION GAP; Value: 8; Range: 8-16; Units: MEQ/L; Status: F Test: CALCIUM LEVEL; Value: 9.0; Range: 8.5-10.1; Units: MG/DL; Status: F Test Note: ; Units are mL/min/1.73 m2 Chronic Kidney Disease Staging per NKF: Stage I & II GFR >=60 Normal to Mildly Decreased Stage III GFR 30-59 Moderately Decreased Stage IV GFR 15-29 Severely Decreased Stage V GFR <15 Very Little GFR Left ESRD GFR <15 on DRY DIP WORKER Lab Order: Liver Profile; [facility] 09/18/16 06:43 Test: AST/SGOT; Value: 17; Range: 15-37; Units: U/L; Status: F Test: ALT/SGPT; Value: 24; Range: 12-78; Units: U/L; Status: F Test: ALKALINE PHOSPHATASE; Value: 70; Range: 45-117; Units: U/L; Status: F Test: BILIRUBIN,TOTAL; Value: 0.5; Range: 0.2-1.0; Units: MG/DL; Status: F Test: BILIRUBIN,DIRECT; Value: < 0.1; Range: 0.0-0.2; Units: MG/DL; Status: F Test: TOTAL PROTEIN; Value: 7.9; Range: 6.4-8.2; Units: GM/DL; Status: F Test: ALBUMIN; Value: 3.9; Range: 3.2-5.2; Units: GM/DL; Status: F Test: ALBUMIN/GLOBULIN RATIO; Value: 0.98; Range: 1.00-1.93; Abnormal: Below low normal; Status: F Lab Order: Lipase; [facility] 06:43 Test: LIPASE; Value: 177; Range: 73-393; Units: U/L; Status: F Lab Order: Amylase; [facility] 09/18/16 06:43 Test: AMYLASE; Value: 51; Range: 25-115; Units: U/L; Status: F Lab Order: HCG,Serum Qualitative; SPEC'M 09/18/16 06:43 Test: HCG, SERUM QUALITATIVE; Value: NEGATIVE; Range: NEGATIVE; Status: F Lab Order: UA; SPEC'M 09/18/16 06:43 Test: APPEARANCE, URINE; Value: CLEAR; Range: CLEAR; Status: F Test: COLOR, URINE; Value: STRAW; Range: YELLOW; Status: F Test: PH,URINE; Value: 6.0; Range: 5.0-9.0; Units: UNITS; Status: F Test: SPECIFIC GRAVITY URINE AUTO; Value: 1.006; Range: 1.002-1.035; Status: F Test: PROTEIN, URINE AUTO; Value: NEGATIVE; Range: NEGATIVE; Units: mg/dL; Status: F Test: GLUCOSE, URINE (UA) AUTO; Value: NEGATIVE; Range: NEGATIVE; Units: mg/dL; Status: F Test: KETONE, URINE AUTO; Value: NEGATIVE; Range: NEGATIVE; Units: mg/dL; Status: F Test: UROBILINOGEN, URINE AUTO; Value: 0.2; Range: 0.0-2.0; Units: mg/dL; Status: F Test: BILIRUBIN, URINE AUTO; Value: NEGATIVE; Range: NEGATIVE; Status: F Test: NITRITE, URINE AUTO; Value: NEGATIVE; Range: NEGATIVE; Status: F Test: LEUKOCYTE ESTERASE, URINE AUTO; Value: NEGATIVE; Range: NEGATIVE; Status: F Test: BLOOD, URINE BLOOD; Value: 1+; Range: NEGATIVE; Abnormal: Above high normal; Status: F Test: WBC, URINE AUTO; Value: 1; Range: 0-3; Units: /HPF; Status: F Test: RBC, URINE AUTO; Value: 1; Range: 0-3; Units: /HPF; Status: F Test: BACTERIA, URINE AUTO; Value: 1+; Range: NEGATIVE; Abnormal: Above high normal; Status: F Test: SQUAMOUS EPITHELIAL CELL UR AU; Value: 1; Range: 0-6; Units: /HPF; Status: F Test: HYALINE CAST, URINE AUTO; Value: 0; Range: 0-1; Units: /LPF; Status: F Lab Order: Urine Culture; SPEC'M 09/18/16 06:43 Test: URINE CULTURE; Value: <EXTERNAL COMMENT eCWMed> FULL REPORT IN LAB NOTES (eCW and Medent).; Status: F Test: URINE CULTURE; Value: ORGANISM 1: ESCHERICHIA COLI; Status: F Test: URINE CULTURE; Value: ESCHERICHIA COLI; Status: F Test: URINE CULTURE; Value: COLONY COUNT CFU/ml 30,000; Status: F Test: URINE CULTURE; Value: GRAM NEG SENSI - VITEK 80; Status: F Test: URINE CULTURE; Value: Method: VIT2; Status: F Test: URINE CULTURE; Value: EXTD BRD SPCTRM BETA LACTAMASE -; Status: F Test: URINE CULTURE; Value: TRIMETHOPRIM/SULFAMETHOXAZOLE <=20 S; Status: F Test: URINE CULTURE; Value: AMPICILLIN <=2 S; Status: F Test: URINE CULTURE; Value: GENTAMICIN <=1 S; Status: F Test: URINE CULTURE; Value: NITROFURANTOIN <=16 S; Status: F Test: URINE CULTURE; Value: CEFAZOLIN <=4 S; Status: F Test: URINE CULTURE; Value: LEVOFLOXACIN <=0.12 S; Status: F Test: URINE CULTURE; Value: TOBRAMYCIN <=1 S; Status: F Test: URINE CULTURE; Value: CEFTRIAXONE <=1 S; Status: F Test: URINE CULTURE; Value: CEFTAZIDIME <=1 S; Status: F Test: URINE CULTURE; Value: AMPICILLIN/SULBACTAM <=2 S; Status: F Test: URINE CULTURE; Value: PIPERACILLIN/TAZOBACTAM <=4 S; Status: F Test: URINE CULTURE; Value: AZTREONAM <=1 S; Status: F Test: URINE CULTURE; Value: ERTAPENEM <=0.5 S; Status: F Test: URINE CULTURE; Value: MEROPENEM <=0.25 S; Status: F Test: URINE CULTURE; Value: TIGECYCLINE <=0.5 S; Status: F Test: URINE CULTURE; Value: CEFEPIME <=1 S; Status: F Lab Order: Monoscreen; SPEC'M 09/18/16 06:43 Test: MONO SCRN; Value: NEGATIVE; Range: NEGATIVE; Status: F Lab Order: CASSIDY PRADO VIRUS AB, COMPREH; SPEC'M 09/18/16 06:43 Test: EBV VIRAL CAPSID AG IgM; Value: <36.0; Range: 0.0-35.9; Units: U/mL; Status: F Test: EBV EARLY ANTIGEN IgG; Value: <9.0; Range: 0.0-8.9; Units: U/mL; Status: F Test: EBV VIRAL CAPSID AG IgG; Value: 35.4; Range: 0.0-17.9; Abnormal: Above high normal; Units: U/mL; Status: F Test: EBV AB TO NUCLEAR ANTIGEN; Value: <18.0; Range: 0.0-17.9; Units: U/mL; Status: F Test: EBV INTERPRETATION; Range: .; Status: F Test Note: ; Negative <36.0 Equivocal 36.0 - 43.9 Positive >43.9 Radiology Order: Gallbladder US Test: Gallbladder US REASON FOR EXAMINATION: ruq pain; Clinical: Right upper quadrant pain.; ; Technique: Real time solis scale ultrasound examination using curved array; transducer.; ; Findings:; Liver demonstrates mild fatty infiltration without focal hepatic lesion; identified. The pancreas is incompletely evaluated due to interposed bowel gas,; but visualized portions appear normal. The gallbladder demonstrates mobile; gallstone without wall thickening or pericholecystic fluid. No biliary ductal; dilatation is appreciated and the common bile duct measures 4 mm diameter. The; right kidney is normal in reniform shape and appearance without hydronephrosis; measuring 11.2 x 5.7 x 4.9 cm. No ascites in the visualized right upper; quadrant.; ; Impression:; Cholelithiasis without sonographic evidence for acute cholecystitis.; Fatty infiltration to the liver.; ; ; Signed by; Shyam Jensen MD 09/18/2016 07:45 A; Radiology Order: CT ABD & PELVIS: IV Contrast Only Test: CT ABD & PELVIS: IV Contrast Only REASON FOR EXAMINATION: upper abdl pain; A CT abdomen and pelvis with IV contrast but without bowel contrast:; ; There are no comparisons.; ; The visualized lung hugo are clear.; ; The hepatic parenchyma is homogeneous. The pancreas is unremarkable. There are; multiple gallbladder calculi in the gallbladder fundus. There is no gallbladder; wall thickening or pericholecystic fluid to suggest acute cholecystitis. There; is no biliary duct dilatation. The spleen has a mottled appearance. This could; be artifact from a scanning during the arterial phase of enhancement or could; represent splenic masses. The spleen is mildly enlarged measuring 13 0.4 cm; craniocaudad.; ; The adrenals, kidneys and abdominal aorta are unremarkable. There is no; adenopathy or ascites.; ; The bowel mesentery are unremarkable.; ; Pelvis:; ; The bladder, uterus and adnexa are unremarkable. There is an IUD in the uterus.; There is no adenopathy or ascites.; ; The appendix is not identified, however there is no pericecal inflammation.; ; There is no pelvic adenopathy or ascites.; ; Impression:; ; Cholelithiasis without CT evidence of acute cholecystitis or biliary duct; dilatation.; ; Mottled appearance of the spleen, likely secondary to timing of scanning with the; contrast bolus. Mild splenomegaly.; ; No ascites or adenopathy. No bowel distension.; ; IUD.; ; ; Signed by; Serg Neri MD 09/18/2016 09:06 A; Outcome: 09:41 Discharge ordered by Provider. ml 09:58 Discharge Assessment: Patient awake, alert and oriented x 3. No cognitive and/or kc3 functional deficits noted. Patient verbalized understanding of disposition instructions. patient administered narcotics - yes. Pt provided with safe discharge. The following High Risk Discharge criteria are identified: None. Condition: stable. Discharge instructions given to patient, Instructed on discharge instructions, follow up and referral plans. medication usage, Demonstrated understanding of instructions, medications, Pt was receptive of discharge instructions/ teaching. Prescriptions given X 1. CT Study completed. Ultrasound Study completed. Property :Personal belongings accompany Pt. 09:59 Patient left the ED. kc3 Signatures: Dispatcher [employer] EDMS Renate Bonilla MD MD ml Murray, Denise, Esthetician Unit deg Terrance Garza,RN Asha Valdovinos RN RN jan Barnhardt, Gloria, Reg Reg gb Keri Sebastian br3 Sherita Neri, BURRING WHEEL OPERATOR BURRING WHEEL OPERATOR russel Dey, Balbina, BURRING WHEEL OPERATOR BURRING WHEEL OPERATOR ct3 Haydee Helm,Kelsi Yang RN, RN RN blaine2 Joanne Guzman Emily Cook RN RN kc3 Edwin Hager, Reg Reg pm4 Chart Complete MTDD
--- NOTE | 2016-09-20 11:00 | EDDOCDS ---
Physician Documentation [facility] Name: Serina Herndon Age: 31 yrs Sex: Female : 1985 Arrival Date: 09/18/2016 Time: 05:10 Bed 10 Private MD: Disposition: 09/18/16 09:41 Discharged to Home/Self Care. Impression: Cholelithiasis, Generalized abdominal pain, Gastritis, unspecified. - Condition is Stable. - Discharge Instructions: Abdominal Pain, Adult, Gastritis, Adult, Abdominal Pain, Women, Cholelithiasis. - Prescriptions for Nexium 20 mg Oral Capsule - take 1 capsule by ORAL route once daily; 20 capsule. - Medication Reconciliation, Local Pharmacy Hours form. - Follow up: Serg Lovell DO; When: 10 - 14 days. [facility]; When: 10 - 14 days. - Problem is new. - Symptoms have improved. - Notes: follow up with dr. lovell for abdominal pain/gallstones. [facility] to establish primary care. Call in 2 days for Cassidy Rosario result. [phone] - ask to speak to charge nurse. return if worsening symptoms Historical: - Allergies: No known drug Allergies; - Home Meds: 1. omeprazole 40 mg Oral cpDR 1 cap once daily - PMHx: GERD; - PSHx: none; - Social history: Smoking status: Patient states former smoker of tobacco. No barriers to communication noted, The patient speaks fluent Polish, Speaks appropriately for age. - Family history: Not pertinent. - : The pt / caregiver states he / she is not on anticoagulants. Home medication list is obtained from the patient. - Exposure Risk Screening:: None identified. 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 2 in. (157.48 cm); Pain 6/10; 07:56 BP 95 / 53; Pulse 61; Resp 16; Pain 5/10; jmk 08:24 BP 113 / 55; Pulse 66; Resp 16; jmk 09:41 BP 107 / 64; Pulse 60; Resp 18; Pulse Ox 98% on R/A; Pain 0/10; kc3 09:57 BP 108 / 63; Pulse 60; Resp 18; Temp 97.5(O); Pulse Ox 99% on R/A; Pain 0/10; kc3 05:43 Body Mass Index 44.99 (111.58 kg, 157.48 cm) ko2 MDM: 05:55 [facility] Payment Agreement was scanned into [employer] and attached to record. slh 06:42 IV Saline Lock ordered. ml 06:42 NS 0.9% 1000 ml IV at bolus once ordered. ml 06:42 Ondansetron 4 mg IVP once ordered. ml 06:42 Misc. Nursing Order ordered. ml 06:44 CBC with Diff Ordered. EDMS 06:44 MED Profile Ordered. EDMS 06:44 Liver Profile Ordered. EDMS 06:44 Lipase Ordered. EDMS 06:44 Amylase Ordered. EDMS 06:44 HCG,Serum Qualitative Ordered. EDMS 06:48 Financial registration complete. pm4 06:58 UA Ordered. EDMS 06:58 Urine Culture Ordered. EDMS 06:59 Gallbladder US Ordered. EDMS 07:14 ketorolac 30 mg IVP once ordered. ml 07:14 morphine 4 mg IVP once ordered. ml 07:22 Ondansetron 4 mg IVP once ordered. jmk 07:34 CBC with Diff Reviewed. ml 07:34 Liver Profile Reviewed. ml 07:34 UA Reviewed. ml 07:34 MED Profile Reviewed. ml 07:34 Lipase Reviewed. ml 07:34 Amylase Reviewed. ml 07:34 HCG,Serum Qualitative Reviewed. ml 08:08 Gallbladder US Reviewed. ml 08:11 Vital Signs ordered. ml 08:11 NS 0.9% 1000 ml IV at bolus once ordered. ml 08:11 Misc. Nursing Order ordered. ml 08:11 morphine 2 mg IVP once ordered. ml 08:12 GI Cocktail - (Alum-Mag Hydroxide-Simeth 30 ml, Lidocaine 10 ml, Hyoscyamine 10 ml) PO ml once; Pre-mixed 50mL unit dose ordered. 08:12 CT ABD & PELVIS: IV Contrast Only Ordered. EDMS 09:19 Monoscreen Ordered. EDMS 09:19 Misc Puff Iron Operator Order ordered. ml 09:22 Misc Puff Iron Operator Order complete. deg 09:23 CASSIDY ROSARIO VIRUS AB, COMPREH Ordered. EDMS 14:28 T-Sheet-- Draft Copy was scanned into [employer] and attached to record. gb Administered Medications: 06:48 Not Given (pt denies nausea): Ondansetron 4 mg IVP once [facility] 07:07 Drug: NS 0.9% 1000 ml Route: IV; Rate: bolus; Site: left antecubital; k 07:21 Drug: ketorolac 30 mg [ketorolac 30 mg/mL (1 mL) injection solution (1 mL)] Route: IVP; [facility] Site: left antecubital; 07:58 Follow up: Response: No significant change. k 07:21 Drug: morphine 4 mg Route: IVP; Site: left antecubital; k 07:58 Follow up: Response: No significant change. k 07:22 Drug: Ondansetron 4 mg Route: IVP; Site: left antecubital; k 07:58 Follow up: Response: No significant change. k 08:23 Drug: NS 0.9% 1000 ml Route: IV; Rate: bolus; Site: left antecubital; k 08:23 Drug: GI Cocktail - (Alum-Mag Hydroxide-Simeth Suspension 225 mg-200 mg-25 mg/5 mL 30 jmk ml, Lidocaine Liquid 2 % 10 ml, Hyoscyamine Liquid 10 ml) Route: PO; 09:07 Follow up: Response: Pain is decreased [facility] 09:58 Not Given (Patient Refused): morphine 2 mg IVP once kc3 Signatures: Dispatcher Med[employer] EDRenate Lomax MD MD ml Murray, Denise, [employer] deg Terrance GarzaRN RN rosariok Tiara Kennedy, Reg Reg gb Kelsi MaldonadoRN RN blaine2 Joanne Guzman [facility] Emily Patterson RN RN kc3 Edwin Hager, Reg Reg pm4 Haydee Helm RN The chart was reviewed and I authenticate all verbal orders and agree with the evaluation and treatment provided.Attachments: 05:55 [facility] Payment Agreement [facility] 14:28 T-Sheet-- Draft Copy gb Chart Complete MTDD
--- NOTE | 2016-09-24 11:47 | EDDOCDS ---
Nurse's Notes [facility] Name: Serina Herndon Age: 31 yrs Sex: Female : 1985 Arrival Date: 09/18/2016 Time: 05:10 Bed 10 Private MD: Diagnosis: Cholelithiasis;Generalized abdominal pain;Gastritis, unspecified Presentation: 09/18 05:39 Presenting complaint: Patient states: was supposed to have gallbladder out a while ago ko2 but didn't and thinks that was what is causing her pain. Was running a fever but took Tylenol. Pt did throw up hours after eating and it was undigested. Risk factors: the patient reports no vaginal bleeding. Suicide/Homicide risk assessment- the patient denies having any suicidal and/or homicidal ideations and does not present with any other emotional, behavioral or mental health complaints. Status: Patient is not a donor services manager or dependent. Transition of care: patient was not received from another setting of care. 05:39 Method Of Arrival: Walkin/Carried/Asstd ko2 05:46 Adult Sepsis Screening: The patient does not have new or worsening altered mentation. ko2 Patient's respiratory rate is less than 22. Systolic blood pressure is greater than 100. Patient has a qSOFA score of 0- Negative Sepsis Screen. 05:46 Acuity: TAD Level 3 ko2 Triage Assessment: 05:42 General: Appears in no apparent distress, Behavior is appropriate for age, cooperative. ko2 Pain: Location: epigastric area, right lower quadrant and left lower quadrant. HIV screening NA for this visit Offered previously. Neurological: Level of Consciousness is awake, alert. Respiratory: Airway is patent Respiratory effort is even, unlabored. GI: Reports lower abdominal pain, nausea, vomiting. Derm: Skin is normal. WELDER: 05:43 LMP 08/2016 ko2 Historical: - Allergies: No known drug Allergies; - Home Meds: 1. omeprazole 40 mg Oral cpDR 1 cap once daily - PMHx: GERD; - PSHx: none; - Social history: Smoking status: Patient states former smoker of tobacco. No barriers to communication noted, The patient speaks fluent Lao, Speaks appropriately for age. - Family history: Not pertinent. - : The pt / caregiver states he / she is not on anticoagulants. Home medication list is obtained from the patient. - Exposure Risk Screening:: None identified. Screenin:46 Screening information is obtained from the patient. Fall risk: No risks identified. ko2 Assistance ADL's: requires no assistance with activities of daily living. Abuse/DV Screen: The patient / caregiver reports he/she is: not in a situation that causes fear, pain or injury. Nutritional screening: No deficits noted. Advance Directives: Currently, there is no health care proxy. There is no active DNR order. There is no living will. There is no Power of Relief Captain. home support is adequate. Assessment: 06:48 General: Appears in no apparent distress, comfortable, Behavior is appropriate for age, mlc cooperative. Pain: Location: epigastric area, right lower quadrant and left lower quadrant Pain currently is 5 out of 10 on a pain scale. Neurological: Level of Consciousness is awake, alert, Oriented to person, place, time. Respiratory: Airway is patent Respiratory effort is even, unlabored, Respiratory pattern is regular. GI: Abdomen is obese, Bowel sounds present X 4 quads. Abd is soft and non tender X 4 quads. Denies nausea. Derm: Skin is pink, warm & dry. 07:22 General: Appears skin warm and dry color satisfactory. moist pink oral mucosa. jmk indicated mid upper abd discomfort. Obese abdomen that is non distended with bowel sounds present x 4 . reports pain radiates to RUQ and to back.. 07:33 General: Appears resp easy and regular with eyes closed. security maintaining contact. jmk awaiting dispo. 07:56 General: Appears states pain is essentially unchanged at 5/10. Reports that she is jmk feeling effect from meds, but pain unchanged. Continues to present in NAD. IV bolus continues.. 09:07 General: Appears states pain has decreased and declined morphine when offered.. jmk 09:40 General: Appears in no apparent distress, comfortable, Behavior is appropriate for age, kc3 cooperative. Pain: Denies pain. Neurological: Level of Consciousness is awake, alert, obeys commands, Oriented to person, place, time. Respiratory: Respiratory effort is even, unlabored. GI: Denies nausea. Derm: Skin is pink, warm & dry. 09:57 General: Appears in no apparent distress, comfortable, Behavior is appropriate for age, kc3 cooperative. Pain: Denies pain. Neurological: No deficits noted. Respiratory: Respiratory effort is even, unlabored. GI: Denies nausea. Vital Signs: 05:43 BP 136 / 88; Pulse 65; Resp 16; Temp 97.4; Pulse Ox 98% ; Weight 111.58 kg; Height 5 ko2 ft. 2 in. (157.48 cm); Pain 6/10; 07:56 BP 95 / 53; Pulse 61; Resp 16; Pain 5/10; jmk 08:24 BP 113 / 55; Pulse 66; Resp 16; jmk 09:41 BP 107 / 64; Pulse 60; Resp 18; Pulse Ox 98% on R/A; Pain 0/10; kc3 09:57 BP 108 / 63; Pulse 60; Resp 18; Temp 97.5(O); Pulse Ox 99% on R/A; Pain 0/10; kc3 05:43 Body Mass Index 44.99 (111.58 kg, 157.48 cm) ko2 Vitals: 05:43 Log In Time: September 18, 2016 at 05:10. ko2 ED Course: 05:12 Patient visited by Edwin Hager Reg. pm4 05:12 Patient moved to Waiting pm4 05:38 Patient moved to Triage 1 ko2 05:46 Triage Initiated ko2 05:47 Patient moved to Waiting ko2 05:55 [facility] [place] Payment Agreement was scanned into [employer] and attached to record. [facility] 06:11 Haydee Helm RN is Primary Nurse. aug 06:11 Patient moved to 10 aug 06:28 Patient visited by Sherita Neri PCA. russel 06:48 Renate Bonilla MD is Attending Physician. ml 06:48 Patient visited by Renate Bonilla MD. ml 06:48 HCG,Serum Qualitative Sent. mlc 06:48 Amylase Sent. mlc 06:48 Lipase Sent. mlc 06:48 Liver Profile Sent. mlc 06:48 MED Profile Sent. mlc 06:48 CBC with Diff Sent. mlc 06:48 Inserted saline lock: 18 gauge in left antecubital area and blood collected. [facility] [place] patient tolerated the procedure well. 06:49 Patient visited by Haydee Helm RN. mlc 07:07 Primary Nurse role handed off by Haydee Helm RN deg 07:08 UA Sent. jmk 07:08 Urine Culture Sent. jmk 07:12 Patient moved to Ultrasound br3 07:22 The patient / caregiver is instructed regarding the plan of care and ED course. jmk 07:24 Patient visited by Terrance Garza,FRIDA. jmk 07:32 Patient moved to 10 br3 07:36 Patient visited by Terrance Garza,FRIDA. jmk 07:56 Gallbladder US Returned. EDMS 08:25 Patient visited by Terrance Garza,FRIDA. jmk 09:17 Patient visited by Balbina Dey PCA. ct3 09:18 CT ABD & PELVIS: IV Contrast Only Returned. EDMS 09:34 Emily Patterson,RN is Primary Nurse. kc3 09:40 Serg Lovell DO is Referral Physician. ml 09:40 [facility] is Referral Physician. ml 09:44 Patient visited by Emily Patterson,FRIDA. kc3 09:58 Discontinued IV lock intact, bleeding controlled, pressure dressing applied, No kc3 redness/swelling at site. No procedures done that require assistance. 14:28 T-Sheet-- Draft Copy was scanned into [employer] and attached to record. gb Administered Medications: 06:48 Not Given (pt denies nausea): Ondansetron 4 mg IVP once mlc 07:07 Drug: NS 0.9% 1000 ml Route: IV; Rate: bolus; Site: left antecubital; jmk 07:21 Drug: ketorolac 30 mg [ketorolac 30 mg/mL (1 mL) injection solution (1 mL)] Route: IVP; [facility] Site: left antecubital; 07:58 Follow up: Response: No significant change. jmk 07:21 Drug: morphine 4 mg Route: IVP; Site: left antecubital; jmk 07:58 Follow up: Response: No significant change. jmk 07:22 Drug: Ondansetron 4 mg Route: IVP; Site: left antecubital; jmk 07:58 Follow up: Response: No significant change. jmk 08:23 Drug: NS 0.9% 1000 ml Route: IV; Rate: bolus; Site: left antecubital; jmk 08:23 Drug: GI Cocktail - (Alum-Mag Hydroxide-Simeth Suspension 225 mg-200 mg-25 mg/5 mL 30 jmk ml, Lidocaine Liquid 2 % 10 ml, Hyoscyamine Liquid 10 ml) Route: PO; 09:07 Follow up: Response: Pain is decreased k 09:58 Not Given (Patient Refused): morphine 2 mg IVP once kc3 Order Results: Lab Order: CBC with Diff; SPEC'M 09/18/16 06:43 Test: WHITE BLOOD COUNT; Value: 6.2; Range: 4.0-10.0; Units: K/mm3; Status: F Test: RED BLOOD COUNT; Value: 4.68; Range: 4.00-5.40; Units: M/mm3; Status: F Test: HEMOGLOBIN; Value: 13.8; Range: 12.0-16.0; Units: g/dl; Status: F Test: HEMATOCRIT; Value: 40.4; Range: 36.0-47.0; Units: %; Status: F Test: MEAN CORPUSCULAR VOLUME; Value: 86.3; Range: 80.0-96.0; Units: fl; Status: F Test: MEAN CORPUSCULAR HEMOGLOBIN; Value: 29.5; Range: 27.0-33.0; Units: pg; Status: F Test: MEAN CORPUSCULAR HGB CONC; Value: 34.2; Range: 32.0-36.5; Units: g/dl; Status: F Test: RED CELL DISTRIBUTION WIDTH; Value: 12.4; Range: 11.5-14.5; Units: %; Status: F Test: PLATELET COUNT, AUTOMATED; Value: 208; Range: 150-450; Units: k/mm3; Status: F Test: NEUTROPHILS %; Value: 76.7; Range: 36.0-66.0; Abnormal: Above high normal; Units: %; Status: F Test: LYMPH %; Value: 16.2; Range: 24.0-44.0; Abnormal: Below low normal; Units: %; Status: F Test: MONO %; Value: 4.8; Range: 0.0-5.0; Units: %; Status: F Test: EOS %; Value: 1.1; Range: 0.0-3.0; Units: %; Status: F Test: BASO %; Value: 0.2; Range: 0.0-1.0; Units: %; Status: F Test: LARGE UNSTAINED CELL %; Value: 1.0; Range: 0.0-4.0; Units: %; Status: F Test: NEUTROPHILS #; Value: 4.8; Range: 1.8-7.7; Units: K/mm3; Status: F Test: LYMPH #; Value: 1.0; Range: 1.5-4.5; Abnormal: Below low normal; Units: K/mm3; Status: F Test: MONO #; Value: 0.3; Range: 0.0-0.8; Units: K/mm3; Status: F Test: EOS #; Value: 0.1; Range: 0.0-0.50; Units: K/mm3; Status: F Test: BASO #; Value: 0.0; Range: 0.0-0.2; Units: K/mm3; Status: F Test: LARGE UNSTAINED CELL #; Value: 0.1; Range: 0.0-0.4; Units: K/mm3; Status: F Lab Order: MED Profile; SPEC'M 09/18/16 06:43 Test: GLUCOSE, FASTING; Value: 92; Range: 70-105; Units: MG/DL; Status: F Test: BLOOD UREA NITROGEN; Value: 15; Range: 7-18; Units: MG/DL; Status: F Test: CREATININE FOR GFR; Value: 0.87; Range: 0.55-1.02; Units: MG/DL; Status: F Test: SODIUM LEVEL; Range: 136-145; Units: MEQ/L; Status: I Test: POTASSIUM SERUM; Range: 3.5-5.1; Units: MEQ/L; Status: I Test: CHLORIDE LEVEL; Range: 98-107; Units: MEQ/L; Status: I Test: CARBON DIOXIDE LEVEL; Range: 21-32; Units: MEQ/L; Status: I Test: ANION GAP; Range: 8-16; Units: MEQ/L; Status: I Test: CALCIUM LEVEL; Range: 8.5-10.1; Units: MG/DL; Status: I Test: GLOMERULAR FILTRATION RATE; Value: > 60.0; Range: >60; Status: F Test: SODIUM LEVEL; Value: 139; Range: 136-145; Units: MEQ/L; Status: F Test: POTASSIUM SERUM; Value: 3.8; Range: 3.5-5.1; Units: MEQ/L; Status: F Test: CHLORIDE LEVEL; Value: 104; Range: 98-107; Units: MEQ/L; Status: F Test: CARBON DIOXIDE LEVEL; Value: 27; Range: 21-32; Units: MEQ/L; Status: F Test: ANION GAP; Value: 8; Range: 8-16; Units: MEQ/L; Status: F Test: CALCIUM LEVEL; Value: 9.0; Range: 8.5-10.1; Units: MG/DL; Status: F Test Note: ; Units are mL/min/1.73 m2 Chronic Kidney Disease Staging per NKF: Stage I & II GFR >=60 Normal to Mildly Decreased Stage III GFR 30-59 Moderately Decreased Stage IV GFR 15-29 Severely Decreased Stage V GFR <15 Very Little GFR Left ESRD GFR <15 on DECAL CUTTER Lab Order: Liver Profile; [facility] 09/18/16 06:43 Test: AST/SGOT; Value: 17; Range: 15-37; Units: U/L; Status: F Test: ALT/SGPT; Value: 24; Range: 12-78; Units: U/L; Status: F Test: ALKALINE PHOSPHATASE; Value: 70; Range: 45-117; Units: U/L; Status: F Test: BILIRUBIN,TOTAL; Value: 0.5; Range: 0.2-1.0; Units: MG/DL; Status: F Test: BILIRUBIN,DIRECT; Value: < 0.1; Range: 0.0-0.2; Units: MG/DL; Status: F Test: TOTAL PROTEIN; Value: 7.9; Range: 6.4-8.2; Units: GM/DL; Status: F Test: ALBUMIN; Value: 3.9; Range: 3.2-5.2; Units: GM/DL; Status: F Test: ALBUMIN/GLOBULIN RATIO; Value: 0.98; Range: 1.00-1.93; Abnormal: Below low normal; Status: F Lab Order: Lipase; [facility]09/18/16 06:43 Test: LIPASE; Value: 177; Range: 73-393; Units: U/L; Status: F Lab Order: Amylase; [facility] 09/18/16 06:43 Test: AMYLASE; Value: 51; Range: 25-115; Units: U/L; Status: F Lab Order: HCG,Serum Qualitative; SPEC'M 09/18/16 06:43 Test: HCG, SERUM QUALITATIVE; Value: NEGATIVE; Range: NEGATIVE; Status: F Lab Order: UA; SPEC'M 09/18/16 06:43 Test: APPEARANCE, URINE; Value: CLEAR; Range: CLEAR; Status: F Test: COLOR, URINE; Value: STRAW; Range: YELLOW; Status: F Test: PH,URINE; Value: 6.0; Range: 5.0-9.0; Units: UNITS; Status: F Test: SPECIFIC GRAVITY URINE AUTO; Value: 1.006; Range: 1.002-1.035; Status: F Test: PROTEIN, URINE AUTO; Value: NEGATIVE; Range: NEGATIVE; Units: mg/dL; Status: F Test: GLUCOSE, URINE (UA) AUTO; Value: NEGATIVE; Range: NEGATIVE; Units: mg/dL; Status: F Test: KETONE, URINE AUTO; Value: NEGATIVE; Range: NEGATIVE; Units: mg/dL; Status: F Test: UROBILINOGEN, URINE AUTO; Value: 0.2; Range: 0.0-2.0; Units: mg/dL; Status: F Test: BILIRUBIN, URINE AUTO; Value: NEGATIVE; Range: NEGATIVE; Status: F Test: NITRITE, URINE AUTO; Value: NEGATIVE; Range: NEGATIVE; Status: F Test: LEUKOCYTE ESTERASE, URINE AUTO; Value: NEGATIVE; Range: NEGATIVE; Status: F Test: BLOOD, URINE BLOOD; Value: 1+; Range: NEGATIVE; Abnormal: Above high normal; Status: F Test: WBC, URINE AUTO; Value: 1; Range: 0-3; Units: /HPF; Status: F Test: RBC, URINE AUTO; Value: 1; Range: 0-3; Units: /HPF; Status: F Test: BACTERIA, URINE AUTO; Value: 1+; Range: NEGATIVE; Abnormal: Above high normal; Status: F Test: SQUAMOUS EPITHELIAL CELL UR AU; Value: 1; Range: 0-6; Units: /HPF; Status: F Test: HYALINE CAST, URINE AUTO; Value: 0; Range: 0-1; Units: /LPF; Status: F Lab Order: Urine Culture; SPEC'M 09/18/16 06:43 Test: URINE CULTURE; Value: <EXTERNAL COMMENT eCWMed> FULL REPORT IN LAB NOTES (eCW and Medent).; Status: F Test: URINE CULTURE; Value: ORGANISM 1: ESCHERICHIA COLI; Status: F Test: URINE CULTURE; Value: ESCHERICHIA COLI; Status: F Test: URINE CULTURE; Value: COLONY COUNT CFU/ml 30,000; Status: F Test: URINE CULTURE; Value: GRAM NEG SENSI - VITEK 80; Status: F Test: URINE CULTURE; Value: Method: VIT2; Status: F Test: URINE CULTURE; Value: EXTD BRD SPCTRM BETA LACTAMASE -; Status: F Test: URINE CULTURE; Value: TRIMETHOPRIM/SULFAMETHOXAZOLE <=20 S; Status: F Test: URINE CULTURE; Value: AMPICILLIN <=2 S; Status: F Test: URINE CULTURE; Value: GENTAMICIN <=1 S; Status: F Test: URINE CULTURE; Value: NITROFURANTOIN <=16 S; Status: F Test: URINE CULTURE; Value: CEFAZOLIN <=4 S; Status: F Test: URINE CULTURE; Value: LEVOFLOXACIN <=0.12 S; Status: F Test: URINE CULTURE; Value: TOBRAMYCIN <=1 S; Status: F Test: URINE CULTURE; Value: CEFTRIAXONE <=1 S; Status: F Test: URINE CULTURE; Value: CEFTAZIDIME <=1 S; Status: F Test: URINE CULTURE; Value: AMPICILLIN/SULBACTAM <=2 S; Status: F Test: URINE CULTURE; Value: PIPERACILLIN/TAZOBACTAM <=4 S; Status: F Test: URINE CULTURE; Value: AZTREONAM <=1 S; Status: F Test: URINE CULTURE; Value: ERTAPENEM <=0.5 S; Status: F Test: URINE CULTURE; Value: MEROPENEM <=0.25 S; Status: F Test: URINE CULTURE; Value: TIGECYCLINE <=0.5 S; Status: F Test: URINE CULTURE; Value: CEFEPIME <=1 S; Status: F Lab Order: Monoscreen; SPEC'M 09/18/16 06:43 Test: MONO SCRN; Value: NEGATIVE; Range: NEGATIVE; Status: F Lab Order: CASSIDY PRADO VIRUS AB, COMPREH; SPEC'M 09/18/16 06:43 Test: EBV VIRAL CAPSID AG IgM; Value: <36.0; Range: 0.0-35.9; Units: U/mL; Status: F Test: EBV EARLY ANTIGEN IgG; Value: <9.0; Range: 0.0-8.9; Units: U/mL; Status: F Test: EBV VIRAL CAPSID AG IgG; Value: 35.4; Range: 0.0-17.9; Abnormal: Above high normal; Units: U/mL; Status: F Test: EBV AB TO NUCLEAR ANTIGEN; Value: <18.0; Range: 0.0-17.9; Units: U/mL; Status: F Test: EBV INTERPRETATION; Range: .; Status: F Test Note: ; Negative <36.0 Equivocal 36.0 - 43.9 Positive >43.9 Radiology Order: Gallbladder US Test: Gallbladder US REASON FOR EXAMINATION: ruq pain; Clinical: Right upper quadrant pain.; ; Technique: Real time solis scale ultrasound examination using curved array; transducer.; ; Findings:; Liver demonstrates mild fatty infiltration without focal hepatic lesion; identified. The pancreas is incompletely evaluated due to interposed bowel gas,; but visualized portions appear normal. The gallbladder demonstrates mobile; gallstone without wall thickening or pericholecystic fluid. No biliary ductal; dilatation is appreciated and the common bile duct measures 4 mm diameter. The; right kidney is normal in reniform shape and appearance without hydronephrosis; measuring 11.2 x 5.7 x 4.9 cm. No ascites in the visualized right upper; quadrant.; ; Impression:; Cholelithiasis without sonographic evidence for acute cholecystitis.; Fatty infiltration to the liver.; ; ; Signed by; Shyam Jensen MD 09/18/2016 07:45 A; Radiology Order: CT ABD & PELVIS: IV Contrast Only Test: CT ABD & PELVIS: IV Contrast Only REASON FOR EXAMINATION: upper abdl pain; A CT abdomen and pelvis with IV contrast but without bowel contrast:; ; There are no comparisons.; ; The visualized lung hugo are clear.; ; The hepatic parenchyma is homogeneous. The pancreas is unremarkable. There are; multiple gallbladder calculi in the gallbladder fundus. There is no gallbladder; wall thickening or pericholecystic fluid to suggest acute cholecystitis. There; is no biliary duct dilatation. The spleen has a mottled appearance. This could; be artifact from a scanning during the arterial phase of enhancement or could; represent splenic masses. The spleen is mildly enlarged measuring 13 0.4 cm; craniocaudad.; ; The adrenals, kidneys and abdominal aorta are unremarkable. There is no; adenopathy or ascites.; ; The bowel mesentery are unremarkable.; ; Pelvis:; ; The bladder, uterus and adnexa are unremarkable. There is an IUD in the uterus.; There is no adenopathy or ascites.; ; The appendix is not identified, however there is no pericecal inflammation.; ; There is no pelvic adenopathy or ascites.; ; Impression:; ; Cholelithiasis without CT evidence of acute cholecystitis or biliary duct; dilatation.; ; Mottled appearance of the spleen, likely secondary to timing of scanning with the; contrast bolus. Mild splenomegaly.; ; No ascites or adenopathy. No bowel distension.; ; IUD.; ; ; Signed by; Serg Neri MD 09/18/2016 09:06 A; Outcome: 09:41 Discharge ordered by Provider. ml 09:58 Discharge Assessment: Patient awake, alert and oriented x 3. No cognitive and/or kc3 functional deficits noted. Patient verbalized understanding of disposition instructions. patient administered narcotics - yes. Pt provided with safe discharge. The following High Risk Discharge criteria are identified: None. Condition: stable. Discharge instructions given to patient, Instructed on discharge instructions, follow up and referral plans. medication usage, Demonstrated understanding of instructions, medications, Pt was receptive of discharge instructions/ teaching. Prescriptions given X 1. CT Study completed. Ultrasound Study completed. Property :Personal belongings accompany Pt. 09:59 Patient left the ED. kc3 Signatures: Dispatcher [employer] EDMS Renate Bonilla MD MD ml Murray, Denise, Service Car Operator Unit deg Terrance Garza,RN Asha Valdovinos RN RN jan Barnhardt, Gloria, Reg Reg gb Keri Sebastian br3 Sherita Neri, MINE EXPLORATION ENGINEER MINE EXPLORATION ENGINEER russel Dey, Balbina, MINE EXPLORATION ENGINEER MINE EXPLORATION ENGINEER ct3 Haydee Helm,Kelsi Yang RN, RN RN blaine2 Joanne Guzman Emily Cook RN RN kc3 Edwin Hager, Reg Reg pm4 Chart Complete MTDD
--- NOTE | 2016-09-24 11:47 | EDDOCDS ---
Physician Documentation [facility] Name: Serina Herndon Age: 31 yrs Sex: Female : 1985 Arrival Date: 09/18/2016 Time: 05:10 Bed 10 Private MD: Disposition: 09/18/16 09:41 Discharged to Home/Self Care. Impression: Cholelithiasis, Generalized abdominal pain, Gastritis, unspecified. - Condition is Stable. - Discharge Instructions: Abdominal Pain, Adult, Gastritis, Adult, Abdominal Pain, Women, Cholelithiasis. - Prescriptions for Nexium 20 mg Oral Capsule - take 1 capsule by ORAL route once daily; 20 capsule. - Medication Reconciliation, Local Pharmacy Hours form. - Follow up: Serg Lovell DO; When: 10 - 14 days. [facility]; When: 10 - 14 days. - Problem is new. - Symptoms have improved. - Notes: follow up with dr. lovell for abdominal pain/gallstones. [facility] to [facility] primary care. Call in 2 days for Cassidy Rosario result. [phone] - ask to speak to charge nurse. return if worsening symptoms Historical: - Allergies: No known drug Allergies; - Home Meds: 1. omeprazole 40 mg Oral cpDR 1 cap once daily - PMHx: GERD; - PSHx: none; - Social history: Smoking status: Patient states former smoker of tobacco. No barriers to communication noted, The patient speaks fluent [place], Speaks appropriately for age. - Family history: Not pertinent. - : The pt / caregiver states he / she is not on anticoagulants. Home medication list is obtained from the patient. - Exposure Risk Screening:: None identified. CARE TRANSITION COORDINATOR: 09/18 05:43 LMP 08/2016 ko2 Vital Signs: 05:43 BP 136 / 88; Pulse 65; Resp 16; Temp 97.4; Pulse Ox 98% ; Weight 111.58 kg / 245.99 ko2 lbs; Height 5 ft. 2 in. (157.48 cm); Pain 6/10; 07:56 BP 95 / 53; Pulse 61; Resp 16; Pain 5/10; jmk 08:24 BP 113 / 55; Pulse 66; Resp 16; jmk 09:41 BP 107 / 64; Pulse 60; Resp 18; Pulse Ox 98% on R/A; Pain 0/10; kc3 09:57 BP 108 / 63; Pulse 60; Resp 18; Temp 97.5(O); Pulse Ox 99% on R/A; Pain 0/10; kc3 05:43 Body Mass Index 44.99 (111.58 kg, 157.48 cm) ko2 MDM: 05:55 [facility] Payment Agreement was scanned into [employer] and attached to record. slh 06:42 IV Saline Lock ordered. ml 06:42 NS 0.9% 1000 ml IV at bolus once ordered. ml 06:42 Ondansetron 4 mg IVP once ordered. ml 06:42 Misc. Nursing Order ordered. ml 06:44 CBC with Diff Ordered. EDMS 06:44 MED Profile Ordered. EDMS 06:44 Liver Profile Ordered. EDMS 06:44 Lipase Ordered. EDMS 06:44 Amylase Ordered. EDMS 06:44 HCG,Serum Qualitative Ordered. EDMS 06:48 Financial registration complete. pm4 06:58 UA Ordered. EDMS 06:58 Urine Culture Ordered. EDMS 06:59 Gallbladder US Ordered. EDMS 07:14 ketorolac 30 mg IVP once ordered. ml 07:14 morphine 4 mg IVP once ordered. ml 07:22 Ondansetron 4 mg IVP once ordered. jmk 07:34 CBC with Diff Reviewed. ml 07:34 Liver Profile Reviewed. ml 07:34 UA Reviewed. ml 07:34 MED Profile Reviewed. ml 07:34 Lipase Reviewed. ml 07:34 Amylase Reviewed. ml 07:34 HCG,Serum Qualitative Reviewed. ml 08:08 Gallbladder US Reviewed. ml 08:11 Vital Signs ordered. ml 08:11 NS 0.9% 1000 ml IV at bolus once ordered. ml 08:11 Misc. Nursing Order ordered. ml 08:11 morphine 2 mg IVP once ordered. ml 08:12 GI Cocktail - (Alum-Mag Hydroxide-Simeth 30 ml, Lidocaine 10 ml, Hyoscyamine 10 ml) PO ml once; Pre-mixed 50mL unit dose ordered. 08:12 CT ABD & PELVIS: IV Contrast Only Ordered. EDMS 09:19 Monoscreen Ordered. EDMS 09:19 Misc Transformer Repairer Order ordered. ml 09:22 Misc Transformer Repairer Order complete. deg 09:23 CASSIDY ROSARIO VIRUS AB, COMPREH Ordered. EDMS 14:28 T-Sheet-- Draft Copy was scanned into [employer] and attached to record. gb Administered Medications: 06:48 Not Given (pt denies nausea): Ondansetron 4 mg IVP once [facility] 07:07 Drug: NS 0.9% 1000 ml Route: IV; Rate: bolus; Site: left antecubital; k 07:21 Drug: ketorolac 30 mg [ketorolac 30 mg/mL (1 mL) injection solution (1 mL)] Route: IVP; [facility] Site: left antecubital; 07:58 Follow up: Response: No significant change. k 07:21 Drug: morphine 4 mg Route: IVP; Site: left antecubital; k 07:58 Follow up: Response: No significant change. k 07:22 Drug: Ondansetron 4 mg Route: IVP; Site: left antecubital; k 07:58 Follow up: Response: No significant change. k 08:23 Drug: NS 0.9% 1000 ml Route: IV; Rate: bolus; Site: left antecubital; k 08:23 Drug: GI Cocktail - (Alum-Mag Hydroxide-Simeth Suspension 225 mg-200 mg-25 mg/5 mL 30 jmk ml, Lidocaine Liquid 2 % 10 ml, Hyoscyamine Liquid 10 ml) Route: PO; 09:07 Follow up: Response: Pain is decreased [facility] 09:58 Not Given (Patient Refused): morphine 2 mg IVP once kc3 Signatures: Dispatcher MedHo EDRenate Lomax MD MD ml Murray, Denise, Merchandise Pickup/Receiving Associate Unit deg Terrance GarzaRN RN rosariok Tiara Kennedy, Reg Reg gb Kelsi MaldonadoRN RN blaine2 Joanne Guzman [facility] Emily Patterson RN RN kc3 Edwin Haegr, Reg Reg pm4 Haydee Helm RN The chart was reviewed and I authenticate all verbal orders and agree with the evaluation and treatment provided.Attachments: 05:55 [facility] Payment Agreement [facility] 14:28 T-Sheet-- Draft Copy gb Chart Complete MTDD
--- NOTE | 2016-09-24 11:47 | EDDOCDS ---
Physician Documentation [facility] Name: Serina Herndon Age: 31 yrs Sex: Female : 1985 Arrival Date: 09/18/2016 Time: 05:10 Bed 10 Private MD: Disposition: 09/18/16 09:41 Discharged to Home/Self Care. Impression: Cholelithiasis, Generalized abdominal pain, Gastritis, unspecified. - Condition is Stable. - Discharge Instructions: Abdominal Pain, Adult, Gastritis, Adult, Abdominal Pain, Women, Cholelithiasis. - Prescriptions for Nexium 20 mg Oral Capsule - take 1 capsule by ORAL route once daily; 20 capsule. - Medication Reconciliation, Local Pharmacy Hours form. - Follow up: Serg Lovell DO; When: 10 - 14 days. [facility]; When: 10 - 14 days. - Problem is new. - Symptoms have improved. - Notes: follow up with dr. lovell for abdominal pain/gallstones. [facility] with [facility] to [facility] primary care. Call in 2 days for Cassidy Rosario result. [phone] - ask to speak to charge nurse. return if worsening symptoms Historical: - Allergies: No known drug Allergies; - Home Meds: 1. omeprazole 40 mg Oral cpDR 1 cap once daily - PMHx: GERD; - PSHx: none; - Social history: Smoking status: Patient states former smoker of tobacco. No barriers to communication noted, The patient speaks fluent [place], Speaks appropriately for age. - Family history: Not pertinent. - : The pt / caregiver states he / she is not on anticoagulants. Home medication list is obtained from the patient. - Exposure Risk Screening:: None identified. MANUFACTURING ENGINEERING MANAGER: 09/18 05:43 LMP 08/2016 ko2 Vital Signs: 05:43 BP 136 / 88; Pulse 65; Resp 16; Temp 97.4; Pulse Ox 98% ; Weight 111.58 kg / 245.99 ko2 lbs; Height 5 ft. 2 in. (157.48 cm); Pain 6/10; 07:56 BP 95 / 53; Pulse 61; Resp 16; Pain 5/10; jmk 08:24 BP 113 / 55; Pulse 66; Resp 16; jmk 09:41 BP 107 / 64; Pulse 60; Resp 18; Pulse Ox 98% on R/A; Pain 0/10; kc3 09:57 BP 108 / 63; Pulse 60; Resp 18; Temp 97.5(O); Pulse Ox 99% on R/A; Pain 0/10; kc3 05:43 Body Mass Index 44.99 (111.58 kg, 157.48 cm) ko2 MDM: 05:55 [facility] [place] Agreement was scanned into [employer] and attached to record. slh 06:42 IV Saline Lock ordered. ml 06:42 NS 0.9% 1000 ml IV at bolus once ordered. ml 06:42 Ondansetron 4 mg IVP once ordered. ml 06:42 Misc. Nursing Order ordered. ml 06:44 CBC with Diff Ordered. EDMS 06:44 MED Profile Ordered. EDMS 06:44 Liver Profile Ordered. EDMS 06:44 Lipase Ordered. EDMS 06:44 Amylase Ordered. EDMS 06:44 HCG,Serum Qualitative Ordered. EDMS 06:48 Financial registration complete. pm4 06:58 UA Ordered. EDMS 06:58 Urine Culture Ordered. EDMS 06:59 Gallbladder US Ordered. EDMS 07:14 ketorolac 30 mg IVP once ordered. ml 07:14 morphine 4 mg IVP once ordered. ml 07:22 Ondansetron 4 mg IVP once ordered. jmk 07:34 CBC with Diff Reviewed. ml 07:34 Liver Profile Reviewed. ml 07:34 UA Reviewed. ml 07:34 MED Profile Reviewed. ml 07:34 Lipase Reviewed. ml 07:34 Amylase Reviewed. ml 07:34 HCG,Serum Qualitative Reviewed. ml 08:08 Gallbladder US Reviewed. ml 08:11 Vital Signs ordered. ml 08:11 NS 0.9% 1000 ml IV at bolus once ordered. ml 08:11 Misc. Nursing Order ordered. ml 08:11 morphine 2 mg IVP once ordered. ml 08:12 GI Cocktail - (Alum-Mag Hydroxide-Simeth 30 ml, Lidocaine 10 ml, Hyoscyamine 10 ml) PO ml once; Pre-mixed 50mL unit dose ordered. 08:12 CT ABD & PELVIS: IV Contrast Only Ordered. EDMS 09:19 Monoscreen Ordered. EDMS 09:19 Misc Information Technology Security Manager Order ordered. ml 09:22 Misc Information Technology Security Manager Order complete. deg 09:23 CASSIDY ROSARIO VIRUS AB, COMPREH Ordered. EDMS 14:28 T-Sheet-- Draft Copy was scanned into [employer] and attached to record. gb Administered Medications: 06:48 Not Given (pt denies nausea): Ondansetron 4 mg IVP once [facility] 07:07 Drug: NS 0.9% 1000 ml Route: IV; Rate: bolus; Site: left antecubital; k 07:21 Drug: ketorolac 30 mg [ketorolac 30 mg/mL (1 mL) injection solution (1 mL)] Route: IVP; [facility] Site: left antecubital; 07:58 Follow up: Response: No significant change. k 07:21 Drug: morphine 4 mg Route: IVP; Site: left antecubital; k 07:58 Follow up: Response: No significant change. k 07:22 Drug: Ondansetron 4 mg Route: IVP; Site: left antecubital; k 07:58 Follow up: Response: No significant change. k 08:23 Drug: NS 0.9% 1000 ml Route: IV; Rate: bolus; Site: left antecubital; k 08:23 Drug: GI Cocktail - (Alum-Mag Hydroxide-Simeth Suspension 225 mg-200 mg-25 mg/5 mL 30 jmk ml, Lidocaine Liquid 2 % 10 ml, Hyoscyamine Liquid 10 ml) Route: PO; 09:07 Follow up: Response: Pain is decreased [facility] 09:58 Not Given (Patient Refused): morphine 2 mg IVP once kc3 Signatures: Dispatcher MedHo EDRenate Lomax MD MD ml Murray, Denise, Handle Sander Operator Unit deg Terrance GarzaRN RN rosariok Tiara Kennedy, Reg Reg gb Kelsi MaldonadoRN RN blaine2 Joanne Guzman [facility] Emily Patterson RN RN kc3 Edwin Hager, Reg Reg pm4 Haydee Helm RN The chart was reviewed and I authenticate all verbal orders and agree with the evaluation and treatment provided.Attachments: 05:55 [facility] Payment Agreement [facility] 14:28 T-Sheet-- Draft Copy gb Chart Complete MTDD
== END 2016-09-18 09:59 | disposition home or self-care (01) ==
LOC: M ED 05:10
DX: K29.70 Gastritis, unspecified, without bleeding (principal); K21.9 Gastro-esophageal reflux disease without esophagitis; Z79.899 Other long term (current) drug therapy; Z87.891 Personal history of nicotine dependence

== ENCOUNTER → 2016-09-29 | Day surgery (SDC) | payer OTHER ==
[~2016-09-29] VITALS: Ht 157.5 cm; Wt 111.1 kg
[~2016-09-29] MED LIST: BUPIVACAINE/EPIN 0.25% 30 ML VIAL As Ordered ONE; BUPIVACAINE/EPIN 0.25% 30 ML VIAL XX ONE; GLYCOPYRROLATE INJ 0.2 MG/ML 2 ML VIAL As Ordered ONE; KETOROLAC 60 MG/2 ML VIAL (J1885) As Ordered ONE; LIDOCAINE 2% INJ 100 MG/5 ML SDV (FOR ANES.) As Ordered ONE; LR 1,000 ML IV SCH; MEPERIDINE INJ 25 MG/ML VIAL (J2175) IV PRN; METOCLOPRAMIDE INJ 10MG/2ML VIAL (J2765) IV PRN; MIDAZOLAM INJ 2 MG/2 ML VIAL (J2250) As Ordered ONE; NEOSTIGMINE 1MG/ML 5 ML SYRINGE (J2710) As Ordered ONE; NEXI20CA PO; NORCO, ANEXSIA 5/325MG TABLET (HYDROcodone/ACETAMINOPHEN) PO PRN; ONDANSETRON 4MG/2ML VIAL (J2405) As Ordered ONE; ONDANSETRON 4MG/2ML VIAL (J2405) IV PRN; PROPOFOL 200 MG/20 ML VIAL As Ordered ONE; ROCURONIUM BROMIDE 50 MG/5 ML VIAL As Ordered ONE; dexameTHASONE 4 MG/ML 1ML VIAL (J1100) As Ordered ONE; fentaNYL 100 MCG/2 ML INJECTION (J3010) As Ordered ONE; fentaNYL 100 MCG/2 ML INJECTION (J3010) IV PRN
[2016-09-29 07:43] LABS: CONTROL LINE UCG INT CTR LINE PRESENT
[2016-09-29] MEDS: PERCOCET 5MG/325MG TAB PO PRN ×2 (10:26→10:51)
[2016-09-29 11:30] VITALS: BP 128/58
--- NOTE | 2016-09-29 21:21 | RO ---
DATE OF PROCEDURE: 09/29/2016 PREOPERATIVE DIAGNOSIS: Symptomatic cholelithiasis. POSTOPERATIVE DIAGNOSIS: Symptomatic cholelithiasis. PROCEDURE: Laparoscopic cholecystectomy. SURGEON: Dr. Serg Lovell SPANISH INTERPRETER: Dr. Markham ANESTHESIA: General: ESTIMATED BLOOD LOSS: 5 mL. COMPLICATIONS: None. INDICATIONS FOR PROCEDURE: The patient is a 31-year-old female with persistent right upper quadrant abdominal pain, found to have stones on ultrasound. Recommendation was to proceed with laparoscopic, possible open cholecystectomy. Risks and benefits of procedure not limited but including bleeding, infection, hernia formation, damage to surrounding structures, need for further surgery were discussed in detail with the patient, informed was obtained and procedure was planned. DESCRIPTION OF PROCEDURE: The patient was brought back to operating room eight. After sufficient sedation, the abdomen was sterilely prepped and draped. Next, time-out was done to confirm proper patient and proper procedure. Following that, a stab incision was made in left upper quadrant. Veress needle was inserted and the abdomen was insufflated to 15 mmHg. Next, a 5 mm incision was made below the umbilicus. 5 mm OptiView port was then used to gain access to the abdomen. Once the abdomen was entered, a 10 mm port was placed subxiphoid, two 5 mm ports in the right upper quadrant. The gallbladder fundus was then grasped and elevated up towards the right shoulder. The cystic duct and cystic artery were both then clearly identified and dissected free using combination of blunt and sharp dissection. They were both then doubly clipped and cut, gallbladder was then removed from the gallbladder fossa using electrocautery and brought out through the subxiphoid port site in an EndoCatch bag. Right upper quadrant was examined to confirm hemostasis. The abdomen was then desufflated. Skin incision was closed with #4-0 Vicryl subcuticular sutures. The abdomen was cleaned and dried. Steri-Strips, 4 x 4 and tape were applied thus ending procedure.
== END | disposition home or self-care (01) ==
LOC: M SDC 06:59
PROVIDERS: ATTEND Surgery
DX: K80.18 Calculus of gallbladder with other cholecystitis without obstruction (principal); J45.909 Unspecified asthma, uncomplicated; K21.9 Gastro-esophageal reflux disease without esophagitis; Z79.899 Other long term (current) drug therapy; Z87.891 Personal history of nicotine dependence

== ENCOUNTER → 2016-10-18 | Outpatient (CLI) | payer OTHER ==
[~2016-10-18] VITALS: Ht 157.5 cm; Wt 111.1 kg
[~2016-10-18] MED LIST changes: -BUPIVACAINE/EPIN 0.25% 30 ML VIAL As Ordered ONE; -BUPIVACAINE/EPIN 0.25% 30 ML VIAL XX ONE; -GLYCOPYRROLATE INJ 0.2 MG/ML 2 ML VIAL As Ordered ONE; -KETOROLAC 60 MG/2 ML VIAL (J1885) As Ordered ONE; -LIDOCAINE 2% INJ 100 MG/5 ML SDV (FOR ANES.) As Ordered ONE; -LR 1,000 ML IV SCH; -MEPERIDINE INJ 25 MG/ML VIAL (J2175) IV PRN; -METOCLOPRAMIDE INJ 10MG/2ML VIAL (J2765) IV PRN; -MIDAZOLAM INJ 2 MG/2 ML VIAL (J2250) As Ordered ONE; -NEOSTIGMINE 1MG/ML 5 ML SYRINGE (J2710) As Ordered ONE; -NORCO, ANEXSIA 5/325MG TABLET (HYDROcodone/ACETAMINOPHEN) PO PRN; +NS 1,000 ML IV SCH; +OMEP40CA2 PO; -ONDANSETRON 4MG/2ML VIAL (J2405) As Ordered ONE; -ONDANSETRON 4MG/2ML VIAL (J2405) IV PRN; -ROCURONIUM BROMIDE 50 MG/5 ML VIAL As Ordered ONE; +STOO100C PO; -dexameTHASONE 4 MG/ML 1ML VIAL (J1100) As Ordered ONE; -fentaNYL 100 MCG/2 ML INJECTION (J3010) As Ordered ONE; -fentaNYL 100 MCG/2 ML INJECTION (J3010) IV PRN
--- NOTE | 2016-10-18 11:10 | ROOR ---
Patient Name: Serina Herndon Procedure Date: 10/18/2016 10:54 AM Date of : 1985 Age: 31 Room: [facility] Gender: Female Note Status: Finalized Procedure: Upper GI endoscopy Indications: Epigastric abdominal pain, Suspected esophageal reflux Providers: Serg Lovell DO Referring MD: 1. No Referring Physician 1. No Referring Physician, Admin. Requesting Provider: Medicines: Propofol per Anesthesia Complications: No immediate complications. Procedure: Pre-Anesthesia Assessment: - Prior to the procedure, a History and Physical was performed, and patient medications and allergies were reviewed. The patient is competent. The risks and benefits of the procedure and the sedation options and risks were discussed with the patient. All questions were answered and informed consent was obtained. Patient identification and proposed procedure were verified by the physician, the nurse, the anesthesiologist and the lay out technician in the endoscopy suite. Mental Status Examination: alert and oriented. Airway Examination: normal oropharyngeal airway and neck mobility. Respiratory Examination: clear to auscultation. CV Examination: normal. Prophylactic Antibiotics: The patient does not require prophylactic antibiotics. Prior Anticoagulants: The patient has taken no previous anticoagulant or antiplatelet agents. ASA Grade Assessment: I - A normal, healthy patient. After reviewing the risks and benefits, the patient was deemed in satisfactory condition to undergo the procedure. The anesthesia plan was to use monitored anesthesia care (MAC). Immediately prior to administration of medications, the patient was re-assessed for adequacy to receive sedatives. The heart rate, respiratory rate, oxygen saturations, blood pressure, adequacy of pulmonary ventilation, and response to care were monitored throughout the procedure. The physical status of the patient was re-assessed after the procedure. The Endoscope was introduced through the mouth, and advanced to the second part of duodenum. The upper GI endoscopy was accomplished without difficulty. The patient tolerated the procedure well. Findings: A few less than 5 mm pedunculated and sessile polyps with no bleeding and no stigmata of recent bleeding were found in the stomach. The polyp was removed with a cold biopsy forceps. Resection and retrieval were complete. Estimated blood loss was minimal. Diffuse mild inflammation characterized by congestion (edema) and erythema was found in the prepyloric region of the stomach. Biopsies were taken with a cold forceps for Helicobacter pylori testing. The Z-line was irregular. Biopsies were taken with a cold forceps for histology. Impression: - A few gastric polyps. Resected and retrieved. - Gastritis. Biopsied. - Z-line irregular. Biopsied. Recommendation: - Patient has a contact number available for emergencies. The signs and symptoms of potential delayed complications were discussed with the patient. Return to normal activities tomorrow. Written discharge instructions were provided to the patient. - Telephone my office for pathology results in 1 week. - Continue present medications. Serg Lovell DO 10/18/2016 11:10:39 AM This report has been signed electronically. Number of Addenda: 0 Note Initiated On: 10/18/2016 10:54 AM Estimated Blood Loss: Estimated blood loss was minimal.
[2016-10-18 11:30] VITALS: BP 137/84
== END | disposition home or self-care (01) ==
LOC: M OPP 09:44
PROVIDERS: ATTEND Surgery
DX: K21.9 Gastro-esophageal reflux disease without esophagitis (principal); K31.7 Polyp of stomach and duodenum; K22.8 Other specified diseases of esophagus; K29.70 Gastritis, unspecified, without bleeding; K80.20 Calculus of gallbladder without cholecystitis without obstruction; R10.13 Epigastric pain; R06.83 Snoring; J45.909 Unspecified asthma, uncomplicated; Z80.1 Family history of malignant neoplasm of trachea, bronchus and lung; Z87.891 Personal history of nicotine dependence; Z79.899 Other long term (current) drug therapy

== ENCOUNTER → 2017-12-20 | Outpatient (CLI) | payer OTHER ==
[~2017-12-20] MED LIST changes: +E-Z-GAS II EFFERVESCENT PACKET (SODIUM BICARB./CITRIC ACID/SIMETHICONE) As Ordered; +E-Z-HD 98% w/w 340GM SUSP BTL As Ordered; +E-Z-PAQUE 96% w/w SUSP 176GM BTL As Ordered; -NEXI20CA PO; -NS 1,000 ML IV SCH; -OMEP40CA2 PO; -PROPOFOL 200 MG/20 ML VIAL As Ordered ONE; -STOO100C PO
== END ==
LOC: M RAD 08:09
DX: K21.9 Gastro-esophageal reflux disease without esophagitis (principal)
CPT/HCPCS: 74241

== ENCOUNTER → 2018-05-07 | Outpatient (CLI) | payer OTHER ==
[2018-05-07 13:55] LABS: BASO % 0.6 % (0.0-1.0); EOS # 0.1 10^3/uL (0.0-0.50); EOS % 1.9 % (0.0-3.0); HEMOGLOBIN 13.3 g/dl (12.0-15.5); IMMATURE GRANULOCYTE % 0.2 % (0-3.0); LYMPH # 1.5 10^3/uL (1.5-4.5); LYMPH % 24.1 % (24.0-44.0); MEAN CORPUSCULAR HEMOGLOBIN 28.4 pg (27.0-33.0); MEAN CORPUSCULAR HGB CONC 33.3 g/dl (32.0-36.5); MEAN CORPUSCULAR VOLUME 85.5 fl (80.0-96.0); MONO # 0.5 10^3/uL (0.0-0.8); MONO % 7.3 % (0.0-5.0); NEUTROPHILS # 4.1 10^3/uL (1.8-7.7); NEUTROPHILS % 65.9 % (36.0-66.0); PLATELET COUNT, AUTOMATED 260 10^3/uL (150-450); RED BLOOD COUNT 4.68 10^6/uL (4.00-5.40); RED CELL DISTRIBUTION WIDTH 12.6 % (11.5-14.5); WHITE BLOOD COUNT 6.2 10^3/uL (4.0-10.0)
[2018-05-07 14:26] LABS: ALBUMIN 3.9 GM/DL (3.2-5.2); ALKALINE PHOSPHATASE 72 U/L (45-117); ALT/SGPT 25 U/L (12-78); ANION GAP 9 MEQ/L (8-16); AST/SGOT 17 U/L (7-37); BILIRUBIN,TOTAL 0.4 MG/DL (0.2-1.0); BLOOD UREA NITROGEN 12 MG/DL (7-18); CALCIUM LEVEL 8.6 MG/DL (8.5-10.1); CARBON DIOXIDE LEVEL 25 MEQ/L (21-32); CHLORIDE LEVEL 107 MEQ/L (98-107); CHOLESTEROL LEVEL 204 MG/DL (<200); CHOLESTEROL RISK RATIO 3.923 (<5); CREATININE FOR GFR 0.75 MG/DL (0.55-1.30); FREE T4 0.85 NG/DL (0.76-1.46); GLOMERULAR FILTRATION RATE > 60.0 (>60); GLUCOSE, FASTING 85 MG/DL (70-100); HDL CHOLESTEROL 52 MG/DL (>40); LDL CHOLESTEROL 119 MG/DL (<100); NON-HDL-C 152 MG/DL; POTASSIUM SERUM 3.9 MEQ/L (3.5-5.1); SODIUM LEVEL 141 MEQ/L (136-145); TOTAL PROTEIN 7.1 GM/DL (6.4-8.2); TRIGLYCERIDES LEVEL 166 MG/DL (<150)
[2018-05-07 16:37] LABS: ALBUMIN/GLOBULIN RATIO 1.22 (1.00-1.93)
== END ==
LOC: M LAB 12:19
DX: R53.83 Other fatigue (principal)
CPT/HCPCS: 84443

== ENCOUNTER 2018-10-02 06:53 | Day surgery (SDC) | payer OTHER ==
[~2018-10-02] VITALS: Ht 157.5 cm; Wt 117.1 kg
[~2018-10-02 06:53] MED LIST changes: -E-Z-GAS II EFFERVESCENT PACKET (SODIUM BICARB./CITRIC ACID/SIMETHICONE) As Ordered; -E-Z-HD 98% w/w 340GM SUSP BTL As Ordered; -E-Z-PAQUE 96% w/w SUSP 176GM BTL As Ordered; +NEXI20CA PO; +NS 1,000 ML IV ONE; +OMEP20CA3 PO; +OMEP40CA2 PO; +STOO100C PO
[2018-10-02] MEDS ORDERED: PROPOFOL 200 MG/20 ML VIAL As Ordered ONE ×3 (07:30→07:43)
--- NOTE | 2018-10-02 07:50 | ROOR ---
Patient Name: Serina Herndon Procedure Date: 10/02/2018 7:29 AM Date of : 1985 Age: 33 Room: [facility] Gender: Female Note Status: Finalized Procedure: Colonoscopy Indications: Hematochezia Providers: DO Derek Nelson MD: Juan Antonio Alba Requesting Provider: Medicines: Propofol per Anesthesia Complications: No immediate complications. Procedure: Pre-Anesthesia Assessment: - Prior to the procedure, a History and Physical was performed, and patient medications and allergies were reviewed. The patient is competent. The risks and benefits of the procedure and the sedation options and risks were discussed with the patient. All questions were answered and informed consent was obtained. Patient identification and proposed procedure were verified by the physician, the nurse, the anesthesiologist and the industrial service technician in the endoscopy suite. Mental Status Examination: alert and oriented. Airway Examination: normal oropharyngeal airway and neck mobility. Respiratory Examination: clear to auscultation. CV Examination: normal. Prophylactic Antibiotics: The patient does not require prophylactic antibiotics. Prior Anticoagulants: The patient has taken no previous anticoagulant or antiplatelet agents. ASA Grade Assessment: II - A patient with mild systemic disease. After reviewing the risks and benefits, the patient was deemed in satisfactory condition to undergo the procedure. The anesthesia plan was to use monitored anesthesia care (MAC). Immediately prior to administration of medications, the patient was re-assessed for adequacy to receive sedatives. The heart rate, respiratory rate, oxygen saturations, blood pressure, adequacy of pulmonary ventilation, and response to care were monitored throughout the procedure. The physical status of the patient was re-assessed after the procedure. The Colonoscope was introduced through the anus and advanced to the cecum, identified by appendiceal orifice and ileocecal valve. The colonoscopy was performed without difficulty. The patient tolerated the procedure well. Findings: The perianal exam findings include non-thrombosed internal hemorrhoids and internal hemorrhoids that prolapse with straining, but spontaneously regress to the resting position (Grade II). The exam was otherwise without abnormality on direct and retroflexion views. Impression: - Non-thrombosed internal hemorrhoids and internal hemorrhoids that prolapse with straining, but spontaneously regress to the resting position (Grade II) found on perianal exam. - The examination was otherwise normal on direct and retroflexion views. - No specimens collected. Recommendation: - Patient has a contact number available for emergencies. The signs and symptoms of potential delayed complications were discussed with the patient. Return to normal activities tomorrow. Written discharge instructions were provided to the patient. - Repeat colonoscopy at age 50 for screening purposes. - Return to my office PRN. Serg Lovell DO 10/02/2018 7:49:57 AM This report has been signed electronically. Number of Addenda: 0 Note Initiated On: 10/02/2018 7:29 AM Estimated Blood Loss: Estimated blood loss: none.
[2018-10-02 08:15] VITALS: BP 135/91
== END 2018-10-02 08:27 | disposition home or self-care (01) ==
LOC: M OPP 06:53
PROVIDERS: ATTEND Surgery
DX: K92.1 Melena (principal); K64.1 Second degree hemorrhoids; K21.9 Gastro-esophageal reflux disease without esophagitis; Z87.891 Personal history of nicotine dependence

== ENCOUNTER → 2019-06-09 | Outpatient (CLI) | payer OTHER ==
[~2019-06-09] MED LIST changes: +MM S100C PO; -NS 1,000 ML IV ONE; -OMEP20CA3 PO; +OMEP20CA4 PO; -OMEP40CA2 PO; +OMEP40CA97 PO; -STOO100C PO
[2019-06-09 14:02] LABS: BASO % 0.7 % (0.0-1.0); EOS # 0.3 10^3/uL (0.0-0.5); EOS % 4.6 % (0.0-3.0); HEMATOCRIT 42.6 % (36.0-47.0); HEMOGLOBIN 14.1 g/dl (12.0-15.5); LYMPH # 1.5 10^3/uL (1.5-5.0); LYMPH % 27.1 % (24.0-44.0); MEAN CORPUSCULAR HEMOGLOBIN 30.7 pg (27.0-33.0); MEAN CORPUSCULAR HGB CONC 33.1 g/dl (32.0-36.5); MEAN CORPUSCULAR VOLUME 92.6 fl (80.0-96.0); MONO # 0.4 10^3/uL (0.0-0.8); MONO % 6.8 % (0.0-5.0); NEUTROPHILS # 3.4 10^3/uL (1.5-8.5); NEUTROPHILS % 60.6 % (36.0-66.0); PLATELET COUNT, AUTOMATED 228 10^3/uL (150-450); WHITE BLOOD COUNT 5.6 10^3/uL (4.0-10.0)
[2019-06-09 14:04] LABS: HEMATOCRIT 42.6 % (36.0-47.0)
[2019-06-09 15:23] LABS: ALBUMIN 3.7 GM/DL (3.2-5.2); ALT/SGPT 23 U/L (12-78); BILIRUBIN,TOTAL 0.4 MG/DL (0.2-1.0); BLOOD UREA NITROGEN 8 MG/DL (7-18); CALCIUM LEVEL 8.6 MG/DL (8.5-10.1); CARBON DIOXIDE LEVEL 30 MEQ/L (21-32); CHLORIDE LEVEL 107 MEQ/L (98-107); CREATININE FOR GFR 0.71 MG/DL (0.55-1.30); FERRITIN 38 NG/ML (8-252); GLOMERULAR FILTRATION RATE > 60.0 (>60); GLUCOSE, FASTING 54 MG/DL (70-100); IRON (FE) 72 UG/DL (50-170); MAGNESIUM LEVEL 2.1 MG/DL (1.8-2.4); PERCENT SATURATION 25.8 % (13.2-45.0); PHOSPHORUS LEVEL 3.6 MG/DL (2.5-4.9); POTASSIUM SERUM 4.3 MEQ/L (3.5-5.1); SODIUM LEVEL 141 MEQ/L (136-145); TOTAL IRON BINDING CAPACITY 279 UG/DL (250-450); TOTAL PROTEIN 6.5 GM/DL (6.4-8.2)
[2019-06-09 15:30] LABS: VITAMIN B12 LEVEL > 2000 PG/ML (247-911)
== END ==
LOC: M LAB 13:06
PROVIDERS: ATTEND Physician Assistant
DX: K91.2 Postsurgical malabsorption, not elsewhere classified (principal); Z98.84 Bariatric surgery status; E55.9 Vitamin D deficiency, unspecified

== ENCOUNTER → 2020-01-21 | Outpatient (CLI) | payer OTHER ==
[~2020-01-21] MED LIST changes: +OMEP1CAP73 PO; -OMEP20CA4 PO
[2020-01-21 16:24] LABS: ALBUMIN 3.7 GM/DL (3.2-5.2); ALT/SGPT 28 U/L (12-78); BILIRUBIN,TOTAL 0.2 MG/DL (0.2-1.0); BLOOD UREA NITROGEN 11 MG/DL (7-18); CALCIUM LEVEL 8.5 MG/DL (8.5-10.1); CARBON DIOXIDE LEVEL 26 MEQ/L (21-32); CHLORIDE LEVEL 107 MEQ/L (98-107); CREATININE FOR GFR 0.66 MG/DL (0.55-1.30); FERRITIN 28 NG/ML (8-252); GLOMERULAR FILTRATION RATE > 60.0 (>60); GLUCOSE, FASTING 88 MG/DL (70-100); IRON (FE) 49 UG/DL (50-170); PERCENT SATURATION 18.5 % (13.2-45.0); PHOSPHORUS LEVEL 3.8 MG/DL (2.5-4.9); POTASSIUM SERUM 4.1 MEQ/L (3.5-5.1); SODIUM LEVEL 140 MEQ/L (136-145); TOTAL IRON BINDING CAPACITY 265 UG/DL (250-450); TOTAL PROTEIN 6.5 GM/DL (6.4-8.2)
[2020-01-21 16:31] LABS: BASO # 0.1 10^3/uL (0.0-0.2); BASO % 0.6 % (0.0-1.0); EOS # 0.2 10^3/uL (0.0-0.5); EOS % 2.4 % (0.0-3.0); HEMATOCRIT 41.1 % (36.0-47.0); HEMOGLOBIN 13.6 g/dl (12.0-15.5); LYMPH # 1.8 10^3/uL (1.5-5.0); LYMPH % 22.5 % (24.0-44.0); MEAN CORPUSCULAR HEMOGLOBIN 30.2 pg (27.0-33.0); MEAN CORPUSCULAR HGB CONC 33.1 g/dl (32.0-36.5); MEAN CORPUSCULAR VOLUME 91.1 fl (80.0-96.0); MONO # 0.5 10^3/uL (0.0-0.8); MONO % 6.1 % (0.0-5.0); NEUTROPHILS # 5.6 10^3/uL (1.5-8.5); PLATELET COUNT, AUTOMATED 236 10^3/uL (150-450); RED BLOOD COUNT 4.51 10^6/uL (4.00-5.40); WHITE BLOOD COUNT 8.2 10^3/uL (4.0-10.0)
[2020-01-21 16:32] LABS: TOTAL 25(OH) VITAMIN D 29.2 NG/ML (30.0-100.0); VITAMIN B12 LEVEL 744 PG/ML (247-911)
[2020-01-21 16:41] LABS: HEMATOCRIT 41.1 % (36.0-47.0); HEMOGLOBIN A1c 4.9 %
== END ==
LOC: M WUC 14:22
PROVIDERS: ATTEND Physician Assistant
DX: K91.2 Postsurgical malabsorption, not elsewhere classified (principal); Z98.84 Bariatric surgery status; E55.9 Vitamin D deficiency, unspecified; Z86.39 Personal history of other endocrine, nutritional and metabolic disease

== ENCOUNTER 2020-11-26 07:13 | Emergency (ER) | payer OTHER, SELFPAY ==
[~2020-11-26] VITALS: Ht 157.5 cm; Wt 65.6 kg
[2020-11-26] MEDS ORDERED: THERTAB21 PO (07:20)
[2020-11-26 07:55] LABS: BASO % 0.4 % (0.0-1.0); EOS # 0.1 10^3/uL (0.0-0.5); EOS % 2.9 % (0.0-3.0); HEMATOCRIT 41.1 % (36.0-47.0); HEMOGLOBIN 13.7 g/dl (12.0-15.5); LYMPH # 1.4 10^3/uL (1.5-5.0); LYMPH % 29.2 % (24.0-44.0); MEAN CORPUSCULAR HEMOGLOBIN 30.5 pg (27.0-33.0); MEAN CORPUSCULAR HGB CONC 33.3 g/dl (32.0-36.5); MEAN CORPUSCULAR VOLUME 91.5 fl (80.0-96.0); MONO # 0.4 10^3/uL (0.0-0.8); MONO % 8.4 % (2.0-8.0); NEUTROPHILS # 2.8 10^3/uL (1.5-8.5); NEUTROPHILS % 58.9 % (36.0-66.0); PLATELET COUNT, AUTOMATED 204 10^3/uL (150-450); RED BLOOD COUNT 4.49 10^6/uL (4.00-5.40); WHITE BLOOD COUNT 4.8 10^3/uL (4.0-10.0)
--- NOTE | 2020-11-26 08:25 | REP ---
INDICATION: constipation x10 days, LUQ pain into back COMPARISON: None. TECHNIQUE: Upright view of the chest with supine and upright views of the abdomen and pelvis. FINDINGS: Frontal upright view of the chest demonstrates no acute cardiopulmonary process or free air below the diaphragm to suspect pneumoperitoneum. Supine and upright views of the abdomen and pelvis demonstrate nonspecific bowel gas pattern without obstruction or perforation. Evidence for prior cholecystectomy and gastric bypass surgery. IUD identified in the pelvis. No organomegaly. No abnormal calcifications. Skeletal structures normal for age. IMPRESSION: Nonspecific bowel gas pattern. <Electronically signed by Shyam Jensen > 11/26/20 [id number]
[2020-11-26 08:26] LABS: ALBUMIN 3.7 GM/DL (3.2-5.2); ALT/SGPT 20 U/L (12-78); BILIRUBIN,DIRECT 0.1 MG/DL (0.0-0.2); BILIRUBIN,TOTAL 0.4 MG/DL (0.2-1.0); BLOOD UREA NITROGEN 9 MG/DL (7-18); CALCIUM LEVEL 8.5 MG/DL (8.5-10.1); CARBON DIOXIDE LEVEL 29 MEQ/L (21-32); CHLORIDE LEVEL 106 MEQ/L (98-107); CREATININE FOR GFR 0.53 MG/DL (0.55-1.30); GLOMERULAR FILTRATION RATE > 60.0 (>60); GLUCOSE, FASTING 92 MG/DL (70-100); LIPASE 214 U/L (73-393); POTASSIUM SERUM 4.2 MEQ/L (3.5-5.1); SODIUM LEVEL 139 MEQ/L (136-145); TOTAL PROTEIN 6.7 GM/DL (6.4-8.2)
[2020-11-26] MEDS ORDERED: LACTULOSE 20 GM/30 ML SYRUP UD PO ONE (08:35)
[2020-11-26] MEDS ORDERED: ENEMCAP PR (09:32)
[2020-11-26] MEDS ORDERED: LACT10SO3 PO (09:32)
[2020-11-26 09:39] VITALS: BP 122/70
== END 2020-11-26 09:43 | disposition home or self-care (01) ==
LOC: M ED 07:13
DX: K59.00 Constipation, unspecified (principal); J45.909 Unspecified asthma, uncomplicated; K52.9 Noninfective gastroenteritis and colitis, unspecified; F17.200 Nicotine dependence, unspecified, uncomplicated; Z88.0 Allergy status to penicillin